=== PATIENT | female | born 1935 | race Caucasian/White ===

== ENCOUNTER → 2017-01-19 | Outpatient (REF) | payer MEDICARE ==
[~2017-01-19] MED LIST: /PANT40TA OR; ACYC400T OR; ALBUTEROL INH; CALCIUM WITH D PO; FERR325T OR; FLEXERIL; FLEXERIL PO; FURO40TA2 OR; GENTEAL GEL OD; GLUC500T3 OR; GLUMETZA PO; HYDR50TA7 OR; HYZAAR PO; INSULANT SC; LEVOCETIRIZINE PO; LIPI20TA OR; MULTIVIT PO; NASONEX; NEUR100C OR; POTA20TA OR; REFRESH EYE DROPS OU; SPIR25TA2 OR; SYMB80AE INH; VITA500T OR
== END ==
LOC: M LAB REF 16:24
PROVIDERS: ATTEND Surgery
DX: L57.0 Actinic keratosis (principal)

== ENCOUNTER 2018-01-31 14:38 | Inpatient (IN) | payer MEDICARE, BC, OTHER ==
[2018-01-31] MEDS: ONDANSETRON 4MG/2ML VIAL (J2405) IV (15:45)
[2018-01-31] MEDS: NS 500 ML IV (15:45)
[2018-01-31 17:12] LABS: HEMATOCRIT 27.1 % (36.0-47.0); HEMOGLOBIN 8.7 g/dl (12.0-15.5); MEAN CORPUSCULAR HEMOGLOBIN 25.9 pg (27.0-33.0); MEAN CORPUSCULAR HGB CONC 32.1 g/dl (32.0-36.5); MEAN CORPUSCULAR VOLUME 80.7 fl (80.0-96.0); PLATELET COUNT, AUTOMATED 213 10^3/uL (150-450); RED BLOOD COUNT 3.36 10^6/uL (4.00-5.40); RED CELL DISTRIBUTION WIDTH 15.9 % (11.5-14.5)
[2018-01-31 17:13] LABS: POSITIVE DIFF POS FLAG; WHITE BLOOD COUNT 15.5 10^3/uL (4.0-10.0)
[2018-01-31 17:14] LABS: ADD MANUAL DIFFER YES; DIFF SLIDE NUMBER 294; POSITIVE MORPH POS FLAG
[2018-01-31 17:16] LABS: KETONE, URINE AUTO RFX TRACE mg/dL (NEGATIVE); LEUKOCYTE ESTERASE UR AUTO RFX 3+ (NEGATIVE); NITRITE, URINE AUTO RFX POSITIVE (NEGATIVE); RBC, URINE AUTO RFX 3 /HPF (0-3); SPECIFIC GRAVITY UR AUTO RFX 1.013 (1.002-1.035); SQUAM EPITHELIAL CELL UR AURFX 0 /HPF (0-6); WBC, URINE AUTO RFX TNTC /HPF (0-3)
[2018-01-31 17:38] LABS: ALBUMIN 2.8 GM/DL (3.2-5.2); ALBUMIN/GLOBULIN RATIO 0.58 (1.00-1.93); ALKALINE PHOSPHATASE 96 U/L (45-117); ALT/SGPT 11 U/L (12-78); ANION GAP 8 MEQ/L (8-16); AST/SGOT 13 U/L (7-37); BILIRUBIN,DIRECT 0.3 MG/DL (0.0-0.2); BILIRUBIN,TOTAL 0.8 MG/DL (0.2-1.0); BLOOD UREA NITROGEN 31 MG/DL (7-18); CALCIUM LEVEL 7.8 MG/DL (8.8-10.2); CARBON DIOXIDE LEVEL 24 MEQ/L (21-32); CHLORIDE LEVEL 109 MEQ/L (98-107); CPK CREATINE PHOSPHOKINASE 69 U/L (26-192); CREATININE FOR GFR 1.25 MG/DL (0.55-1.30); GLOMERULAR FILTRATION RATE 43.7 (>32); GLUCOSE, FASTING 86 MG/DL (70-100); LIPASE 87 U/L (73-393); POTASSIUM SERUM 3.4 MEQ/L (3.5-5.1); SODIUM LEVEL 141 MEQ/L (136-145); TOTAL PROTEIN 7.6 GM/DL (6.4-8.2); TROPONIN I < 0.02 NG/ML (< 0.10)
[2018-01-31 17:38] LABS: LACTIC ACID SEPSIS PROTOCOL 0.9 MMOL/L (0.4-2.0)
[2018-01-31 17:43] LABS: CK-MB VALUE MASS 1.4 NG/ML (<3.6); MB/CK RELATIVE INDEX 2.02 (< OR =4)
[2018-01-31 17:52] LABS: ATYPICAL LYMPH 13 % (0-5); BLAST CELLS 1 % (0-0); EOSINOPHILS 1 % (0-5); LYMPHOCYTES 27 % (16-52); MONOCYTES 8 % (0-8); NEUTROPHILS 50 % (35-75); PLATELET ESTIMATE NORMAL (NORMAL)
[2018-01-31] MEDS: POTASSIUM CHLORIDE 10 MEQ SR TABLET PO (19:28)
[2018-01-31] MEDS: NS 1,000 ML IV (19:28)
[2018-01-31] MEDS: SYMBICORT 80/4.5MCG INHALER 6GM INH (20:00)
[2018-01-31] MEDS: VANCOMYCIN ORAL SOL 250MG/5ML ORAL SYRINGE PO (20:06)
[2018-01-31 20:52] LABS: REASON FOR REVIEW ATYPICAL LYMPHS; SLIDE REVIEW Report; SOURCE PERIPHERAL SMEAR
[2018-01-31] MEDS ORDERED: GLUCOSE 4 GM CHEW TABLET PO (21:00)
[2018-01-31] MEDS ORDERED: DEXTROSE 50% 50 ML SYRINGE IV (21:00)
[2018-01-31] MEDS ORDERED: GLUCAGON FOR INJ 1 MG VIAL (J1610) SC (21:00)
[2018-01-31] MEDS ORDERED: NS 1,000 ML IV (21:00)
[2018-01-31 21:09] LABS: INR 1.26
[2018-01-31 21:14] LABS: ERYTHROCYTE SEDIMENTATION RATE 77 mm/hr (0-30)
[2018-01-31] MEDS: HumaLOG INSULIN (NovoLOG) PER UNIT SC (21:47)
[2018-01-31] MEDS: SPIRONOLACTONE 25 MG TAB PO (21:50)
[2018-01-31] MEDS: ATORVASTATIN 20 MG TAB PO (21:50)
[2018-01-31] MEDS: METOPROLOL TART 25 MG TABLET PO (21:50)
[2018-01-31] MEDS: FUROSEMIDE 20 MG TAB PO (21:50)
[2018-01-31] MEDS: GABAPENTIN 300 MG CAP PO (21:51)
[2018-01-31] MEDS: LEVEMIR (INSULIN DETEMIR) 1 UNITS/0.01ML SC (21:51)
[2018-01-31] MEDS: HEPARIN SOD (PORCINE) 5000 UNITS/ML VIAL SC (21:52)
[2018-01-31] MEDS: FLUTICASONE PROP 0.05% NASAL SPRAY 16 GM (FLONASE) (22:50)
[2018-01-31] MEDS: ACETAMINOPHEN TAB 650MG DOSE (2X325MG) PO (22:50)
[2018-02-01] MEDS ORDERED: SLF 3 ML SYR IV (01:00)
[2018-02-01 01:25] LABS: BEDSIDE GLUCOSE 134 MG/DL (83-110)
[2018-02-01] MEDS: ACETAMINOPHEN TAB 650MG DOSE (2X325MG) PO ×3 (03:36→20:05)
[2018-02-01 05:08] LABS: HEMATOCRIT 24.6 % (36.0-47.0); HEMOGLOBIN 7.8 g/dl (12.0-15.5); MEAN CORPUSCULAR HGB CONC 31.7 g/dl (32.0-36.5); PLATELET COUNT, AUTOMATED 189 10^3/uL (150-450)
[2018-02-01 05:12] LABS: ADD MANUAL DIFFER YES; DIFF SLIDE NUMBER 83; POSITIVE DIFF POS FLAG; POSITIVE MORPH POS FLAG
[2018-02-01 05:18] LABS: PROTHROMBIN TIME 16.5 SECONDS (12.4-14.5)
[2018-02-01 05:24] LABS: AMMONIA 35 uMOL/L (<32)
[2018-02-01 05:35] LABS: ALBUMIN 2.6 GM/DL (3.2-5.2); ALBUMIN/GLOBULIN RATIO 0.59 (1.00-1.93); ALKALINE PHOSPHATASE 83 U/L (45-117); ALT/SGPT 10 U/L (12-78); ANION GAP 5 MEQ/L (8-16); AST/SGOT 12 U/L (7-37); BILIRUBIN,DIRECT 0.2 MG/DL (0.0-0.2); BILIRUBIN,TOTAL 0.7 MG/DL (0.2-1.0); BLOOD UREA NITROGEN 31 MG/DL (7-18); CALCIUM LEVEL 7.5 MG/DL (8.8-10.2); CARBON DIOXIDE LEVEL 26 MEQ/L (21-32); CHLORIDE LEVEL 112 MEQ/L (98-107); CREATININE FOR GFR 1.26 MG/DL (0.55-1.30); GLOMERULAR FILTRATION RATE 43.3 (>32); GLUCOSE, FASTING 47 MG/DL (70-100); MAGNESIUM LEVEL 1.2 MG/DL (1.8-2.4); POTASSIUM SERUM 3.6 MEQ/L (3.5-5.1); SODIUM LEVEL 143 MEQ/L (136-145)
[2018-02-01 05:38] LABS: ANISOCYTOSIS 1+; ATYPICAL LYMPH 1 % (0-5); LYMPHOCYTES 39 % (16-52); MONOCYTES 2 % (0-8); NEUTROPHILS 58 % (35-75); PLATELET ESTIMATE NORMAL (NORMAL)
[2018-02-01] MEDS: HEPARIN SOD (PORCINE) 5000 UNITS/ML VIAL SC ×3 (06:24→22:19)
[2018-02-01] MEDS: SLF 3 ML SYR IV ×3 (06:25→22:00)
[2018-02-01 07:12] LABS: BEDSIDE GLUCOSE 64 MG/DL (83-110)
[2018-02-01 07:12] LABS: BEDSIDE GLUCOSE 121 MG/DL (83-110)
[2018-02-01] MEDS: HumaLOG INSULIN (NovoLOG) PER UNIT SC ×4 (07:30→21:00)
[2018-02-01] MEDS: SYMBICORT 80/4.5MCG INHALER 6GM INH ×2 (08:10→21:35)
[2018-02-01] MEDS: FUROSEMIDE 20 MG TAB PO ×2 (08:30→22:16)
[2018-02-01] MEDS: VITAMIN D 1,000 INTERNATIONAL UNITS TABLET PO (08:31)
[2018-02-01] MEDS: PANTOPRAZOLE 40MG TAB (PROTONIX) PO (08:31)
[2018-02-01] MEDS: MULTIVITAMINS/MINERALS THERAP 1 TAB PO (08:31)
[2018-02-01] MEDS: VANCOMYCIN ORAL SOL 250MG/5ML ORAL SYRINGE PO ×3 (08:31→22:16)
[2018-02-01] MEDS: ASCORBIC ACID 500 MG TAB PO (08:31)
[2018-02-01] MEDS: METOPROLOL TART 25 MG TABLET PO ×2 (08:31→22:17)
[2018-02-01] MEDS: NORCO, ANEXSIA 5/325MG TABLET (HYDROcodone/ACETAMINOPHEN) PO (08:36)
[2018-02-01 09:18] LABS: HEMATOCRIT 26.1 % (36.0-47.0)
[2018-02-01 09:22] LABS: REASON FOR REVIEW WBC/LEUKEMIA/BLAST; SLIDE REVIEW Report; SOURCE PERIPHERAL SMEAR
[2018-02-01] MEDS: PIPERACILLIN/TAZOBACTAM SOD 3.375 GM in D5W MINI-BAG PLUS 50 ML IV ×3 (10:15→23:27)
[2018-02-01] MEDS: VANCOMYCIN HCL 1,000 MG, VIAL MATE ADAPTER 1 EACH in D5W 250 ML IV (11:25)
[2018-02-01] MEDS: VANCOMYCIN HCL 500 MG, VIAL MATE ADAPTER 1 EACH in D5W 250 ML IV (14:08)
[2018-02-01] MEDS: MAG SULF 1GM/100ML (MAG RUN) 1 GM in APPROPRIATE DILUENT 1 EA IV ×3 (17:41→19:52)
[2018-02-01] MEDS: FLUTICASONE PROP 0.05% NASAL SPRAY 16 GM (FLONASE) (21:00)
[2018-02-01 21:52] LABS: IMMEDIATE SPIN CROSSMATCH 1 1
[2018-02-01] MEDS: SPIRONOLACTONE 25 MG TAB PO (22:16)
[2018-02-01] MEDS: GABAPENTIN 300 MG CAP PO (22:17)
[2018-02-01] MEDS: ATORVASTATIN 20 MG TAB PO (22:17)
[2018-02-01] MEDS: LEVEMIR (INSULIN DETEMIR) 1 UNITS/0.01ML SC (22:18)
[2018-02-01] MEDS: ANALGESIC BALM CRM 120 GM TOP (22:31)
[2018-02-02 00:51] LABS: HEMATOCRIT 26.2 % (36.0-47.0); HEMOGLOBIN 8.3 g/dl (12.0-15.5); MEAN CORPUSCULAR HEMOGLOBIN 26.2 pg (27.0-33.0); MEAN CORPUSCULAR HGB CONC 31.7 g/dl (32.0-36.5); MEAN CORPUSCULAR VOLUME 82.6 fl (80.0-96.0); PLATELET COUNT, AUTOMATED 179 10^3/uL (150-450); RED BLOOD COUNT 3.17 10^6/uL (4.00-5.40); RED CELL DISTRIBUTION WIDTH 15.8 % (11.5-14.5); WHITE BLOOD COUNT 13.8 10^3/uL (4.0-10.0)
[2018-02-02 01:12] LABS: ANION GAP 7 MEQ/L (8-16); BLOOD UREA NITROGEN 28 MG/DL (7-18); CALCIUM LEVEL 7.7 MG/DL (8.8-10.2); CARBON DIOXIDE LEVEL 24 MEQ/L (21-32); CHLORIDE LEVEL 109 MEQ/L (98-107); GLOMERULAR FILTRATION RATE 35.4 (>32); GLUCOSE, FASTING 132 MG/DL (70-100); MAGNESIUM LEVEL 2.1 MG/DL (1.8-2.4); POTASSIUM SERUM 3.3 MEQ/L (3.5-5.1); SODIUM LEVEL 140 MEQ/L (136-145)
[2018-02-02] MEDS: POTASSIUM CHLORIDE 10 MEQ SR TABLET PO (01:31)
[2018-02-02] MEDS: ACETAMINOPHEN TAB 650MG DOSE (2X325MG) PO (01:36)
[2018-02-02 02:37] LABS: BEDSIDE GLUCOSE 147 MG/DL (83-110)
[2018-02-02] MEDS: PIPERACILLIN/TAZOBACTAM SOD 3.375 GM in D5W MINI-BAG PLUS 50 ML IV (04:47)
[2018-02-02 05:52] LABS: HEMATOCRIT 26.6 % (36.0-47.0); HEMOGLOBIN 8.3 g/dl (12.0-15.5); MEAN CORPUSCULAR HEMOGLOBIN 25.9 pg (27.0-33.0); MEAN CORPUSCULAR HGB CONC 31.2 g/dl (32.0-36.5); MEAN CORPUSCULAR VOLUME 83.1 fl (80.0-96.0); PLATELET COUNT, AUTOMATED 201 10^3/uL (150-450); RED CELL DISTRIBUTION WIDTH 15.9 % (11.5-14.5); WHITE BLOOD COUNT 12.6 10^3/uL (4.0-10.0)
[2018-02-02 05:57] LABS: POSITIVE DIFF POS FLAG; POSITIVE MORPH POS FLAG
[2018-02-02 05:58] LABS: ADD MANUAL DIFFER YES; DIFF SLIDE NUMBER 56
[2018-02-02] MEDS: SLF 3 ML SYR IV ×3 (06:00→21:11)
[2018-02-02] MEDS: HEPARIN SOD (PORCINE) 5000 UNITS/ML VIAL SC ×3 (06:06→21:11)
[2018-02-02 06:09] LABS: ANION GAP 7 MEQ/L (8-16); BLOOD UREA NITROGEN 31 MG/DL (7-18); CALCIUM LEVEL 7.5 MG/DL (8.8-10.2); CARBON DIOXIDE LEVEL 24 MEQ/L (21-32); CHLORIDE LEVEL 110 MEQ/L (98-107); CREATININE FOR GFR 1.53 MG/DL (0.55-1.30); GLOMERULAR FILTRATION RATE 34.6 (>32); GLUCOSE, FASTING 118 MG/DL (70-100); MAGNESIUM LEVEL 2.1 MG/DL (1.8-2.4); POTASSIUM SERUM 3.5 MEQ/L (3.5-5.1); SODIUM LEVEL 141 MEQ/L (136-145)
[2018-02-02] MEDS: SYMBICORT 80/4.5MCG INHALER 6GM INH ×2 (07:33→20:49)
[2018-02-02 07:34] LABS: ANISOCYTOSIS 1+; ATYPICAL LYMPH 1 % (0-5); EOSINOPHILS 1 % (0-5); LYMPHOCYTES 33 % (16-52); MONOCYTES 8 % (0-8); NEUTROPHILS 57 % (35-75); PLATELET ESTIMATE NORMAL (NORMAL)
[2018-02-02 07:35] LABS: OVALOCYTES 1+
[2018-02-02] MEDS: NS 1,000 ML IV (09:00)
[2018-02-02] MEDS: VITAMIN D 1,000 INTERNATIONAL UNITS TABLET PO (09:59)
[2018-02-02] MEDS: METOPROLOL TART 25 MG TABLET PO ×2 (09:59→21:09)
[2018-02-02] MEDS: FUROSEMIDE 20 MG TAB PO ×2 (09:59→21:00)
[2018-02-02] MEDS: MULTIVITAMINS/MINERALS THERAP 1 TAB PO (09:59)
[2018-02-02] MEDS ORDERED: VANCOMYCIN HCL 1,000 MG, VIAL MATE ADAPTER 1 EACH in D5W 250 ML IV (10:00)
[2018-02-02] MEDS: HumaLOG INSULIN (NovoLOG) PER UNIT SC ×4 (10:00→21:00)
[2018-02-02] MEDS: PANTOPRAZOLE 40MG TAB (PROTONIX) PO (10:00)
[2018-02-02] MEDS: ASCORBIC ACID 500 MG TAB PO (10:00)
[2018-02-02] MEDS: VANCOMYCIN ORAL SOL 250MG/5ML ORAL SYRINGE PO ×2 (10:01→17:55)
[2018-02-02] MEDS: LevoFLOXacin IV 500 MG in APPROPRIATE DILUENT 1 EA IV (10:01)
[2018-02-02] MEDS: LEVEMIR (INSULIN DETEMIR) 1 UNITS/0.01ML SC ×2 (10:01→21:10)
[2018-02-02] MEDS: ANALGESIC BALM CRM 120 GM TOP ×2 (10:04→21:11)
[2018-02-02 10:59] LABS: HEPATITIS B SURFACE ANTIGEN NEGATIVE (NEGATIVE)
[2018-02-02 11:24] LABS: HEPATITIS C VIRUS ABY INDEX 0.1 INDEX (<0.8)
[2018-02-02 11:25] LABS: HEPATITIS B CORE ANTIBODY IGM NEGATIVE (NEGATIVE)
[2018-02-02 11:27] LABS: HEPATITIS A ANTIBODY IGM NEGATIVE (NEGATIVE)
[2018-02-02] MEDS: CYCLOBENZAPRINE 10 MG TAB PO (19:47)
[2018-02-02] MEDS: FLUTICASONE PROP 0.05% NASAL SPRAY 16 GM (FLONASE) (21:00)
[2018-02-02] MEDS: SPIRONOLACTONE 25 MG TAB PO (21:07)
[2018-02-02] MEDS: ATORVASTATIN 20 MG TAB PO (21:09)
[2018-02-02] MEDS: GABAPENTIN 300 MG CAP PO (21:10)
[2018-02-02 21:34] LABS: BEDSIDE GLUCOSE 256 MG/DL (83-110)
[2018-02-02 21:34] LABS: BEDSIDE GLUCOSE 200 MG/DL (83-110)
[2018-02-02 21:34] LABS: BEDSIDE GLUCOSE 125 MG/DL (83-110)
[2018-02-02 21:34] LABS: BEDSIDE GLUCOSE 200 MG/DL (83-110)
[2018-02-02 21:34] LABS: BEDSIDE GLUCOSE 163 MG/DL (83-110)
[2018-02-03] MEDS: NORCO, ANEXSIA 5/325MG TABLET (HYDROcodone/ACETAMINOPHEN) PO ×2 (02:00→21:10)
[2018-02-03 06:03] LABS: HEMATOCRIT 26.7 % (36.0-47.0); HEMOGLOBIN 8.2 g/dl (12.0-15.5); MEAN CORPUSCULAR HEMOGLOBIN 25.6 pg (27.0-33.0); MEAN CORPUSCULAR HGB CONC 30.7 g/dl (32.0-36.5); MEAN CORPUSCULAR VOLUME 83.4 fl (80.0-96.0); PLATELET COUNT, AUTOMATED 192 10^3/uL (150-450); RED CELL DISTRIBUTION WIDTH 15.8 % (11.5-14.5)
[2018-02-03] MEDS: SLF 3 ML SYR IV ×3 (06:06→21:09)
[2018-02-03] MEDS: HEPARIN SOD (PORCINE) 5000 UNITS/ML VIAL SC ×3 (06:06→21:08)
[2018-02-03 06:13] LABS: ADD MANUAL DIFFER YES; DIFF SLIDE NUMBER 35; POSITIVE DIFF POS FLAG; POSITIVE MORPH POS FLAG; WHITE BLOOD COUNT 15.7 10^3/uL (4.0-10.0)
[2018-02-03 06:25] LABS: ANION GAP 7 MEQ/L (8-16); BLOOD UREA NITROGEN 25 MG/DL (7-18); CALCIUM LEVEL 7.9 MG/DL (8.8-10.2); CARBON DIOXIDE LEVEL 25 MEQ/L (21-32); CHLORIDE LEVEL 111 MEQ/L (98-107); CREATININE FOR GFR 1.33 MG/DL (0.55-1.30); GLOMERULAR FILTRATION RATE 40.7 (>32); GLUCOSE, FASTING 97 MG/DL (70-100); MAGNESIUM LEVEL 1.6 MG/DL (1.8-2.4); POTASSIUM SERUM 3.2 MEQ/L (3.5-5.1); SODIUM LEVEL 143 MEQ/L (136-145)
[2018-02-03 06:59] LABS: ATYPICAL LYMPH 2 % (0-5); LYMPHOCYTES 48 % (16-52); MONOCYTES 2 % (0-8); NEUTROPHILS 48 % (35-75)
[2018-02-03 07:00] LABS: ANISOCYTOSIS 1+; PLATELET ESTIMATE NORMAL (NORMAL)
[2018-02-03 07:01] LABS: HYPOCHROMASIA 1+
[2018-02-03] MEDS: SYMBICORT 80/4.5MCG INHALER 6GM INH ×2 (07:40→19:54)
[2018-02-03] MEDS: HumaLOG INSULIN (NovoLOG) PER UNIT SC ×4 (07:44→20:51)
[2018-02-03 08:44] LABS: BEDSIDE GLUCOSE 191 MG/DL (83-110)
[2018-02-03] MEDS: LEVEMIR (INSULIN DETEMIR) 1 UNITS/0.01ML SC ×2 (08:56→21:08)
[2018-02-03] MEDS: MAG SULF 1GM/100ML (MAG RUN) 1 GM in APPROPRIATE DILUENT 1 EA IV ×2 (08:56→10:15)
[2018-02-03] MEDS: POTASSIUM CHLORIDE 10 MEQ SR TABLET PO (08:56)
[2018-02-03] MEDS: MULTIVITAMINS/MINERALS THERAP 1 TAB PO (08:57)
[2018-02-03] MEDS: VITAMIN D 1,000 INTERNATIONAL UNITS TABLET PO (08:57)
[2018-02-03] MEDS: METOPROLOL TART 25 MG TABLET PO ×2 (08:57→21:07)
[2018-02-03] MEDS: ASCORBIC ACID 500 MG TAB PO (08:57)
[2018-02-03] MEDS: FUROSEMIDE 20 MG TAB PO ×2 (08:57→21:06)
[2018-02-03] MEDS: PANTOPRAZOLE 40MG TAB (PROTONIX) PO (08:57)
[2018-02-03] MEDS: LevoFLOXacin IV 500 MG in APPROPRIATE DILUENT 1 EA IV (11:26)
[2018-02-03 12:15] LABS: BEDSIDE GLUCOSE 217 MG/DL (83-110)
[2018-02-03] MEDS: LOPERAMIDE 2 MG CAP PO (14:42)
[2018-02-03 17:02] LABS: BEDSIDE GLUCOSE 225 MG/DL (83-110)
[2018-02-03 20:48] LABS: BEDSIDE GLUCOSE 232 MG/DL (83-110)
[2018-02-03] MEDS: FLUTICASONE PROP 0.05% NASAL SPRAY 16 GM (FLONASE) (21:00)
[2018-02-03] MEDS: CYCLOBENZAPRINE 10 MG TAB PO (21:06)
[2018-02-03] MEDS: GABAPENTIN 300 MG CAP PO (21:06)
[2018-02-03] MEDS: SPIRONOLACTONE 25 MG TAB PO (21:06)
[2018-02-03] MEDS: ATORVASTATIN 20 MG TAB PO (21:07)
[2018-02-03] MEDS: ANALGESIC BALM CRM 120 GM TOP (21:08)
[2018-02-04 05:59] LABS: HEMATOCRIT 28.7 % (36.0-47.0); HEMOGLOBIN 8.8 g/dl (12.0-15.5); MEAN CORPUSCULAR HGB CONC 30.7 g/dl (32.0-36.5); MEAN CORPUSCULAR VOLUME 84.7 fl (80.0-96.0); PLATELET COUNT, AUTOMATED 188 10^3/uL (150-450); RED BLOOD COUNT 3.39 10^6/uL (4.00-5.40)
[2018-02-04 06:00] LABS: ADD MANUAL DIFFER YES; DIFF SLIDE NUMBER 23; POSITIVE DIFF POS FLAG; POSITIVE MORPH POS FLAG; WHITE BLOOD COUNT 15.2 10^3/uL (4.0-10.0)
[2018-02-04] MEDS: SLF 3 ML SYR IV ×3 (06:00→22:55)
[2018-02-04] MEDS: HEPARIN SOD (PORCINE) 5000 UNITS/ML VIAL SC ×3 (06:18→22:54)
[2018-02-04 06:26] LABS: ANION GAP 6 MEQ/L (8-16); BLOOD UREA NITROGEN 23 MG/DL (7-18); CALCIUM LEVEL 8.3 MG/DL (8.8-10.2); CARBON DIOXIDE LEVEL 27 MEQ/L (21-32); CHLORIDE LEVEL 109 MEQ/L (98-107); GLOMERULAR FILTRATION RATE 45.8 (>32); GLUCOSE, FASTING 123 MG/DL (70-100); MAGNESIUM LEVEL 1.7 MG/DL (1.8-2.4); POTASSIUM SERUM 3.7 MEQ/L (3.5-5.1); SODIUM LEVEL 142 MEQ/L (136-145)
[2018-02-04 07:20] LABS: ATYPICAL LYMPH 3 % (0-5); BANDS 1 % (< 11); LYMPHOCYTES 45 % (16-52); MONOCYTES 2 % (0-8); MYELOCYTES 1 % (0-0); NEUTROPHILS 48 % (35-75)
[2018-02-04 07:21] LABS: PLATELET ESTIMATE NORMAL (NORMAL)
[2018-02-04 07:22] LABS: ANISOCYTOSIS 1+; MICROCYTOSIS 1+; POIKILOCYTOSIS 1+
[2018-02-04] MEDS: SYMBICORT 80/4.5MCG INHALER 6GM INH ×2 (07:51→21:33)
[2018-02-04] MEDS: LEVEMIR (INSULIN DETEMIR) 1 UNITS/0.01ML SC ×2 (09:46→20:29)
[2018-02-04] MEDS: HumaLOG INSULIN (NovoLOG) PER UNIT SC ×4 (09:46→20:30)
[2018-02-04] MEDS: MULTIVITAMINS/MINERALS THERAP 1 TAB PO (09:46)
[2018-02-04] MEDS: PANTOPRAZOLE 40MG TAB (PROTONIX) PO (09:46)
[2018-02-04] MEDS: FUROSEMIDE 20 MG TAB PO ×2 (09:47→20:29)
[2018-02-04] MEDS: ASCORBIC ACID 500 MG TAB PO (09:47)
[2018-02-04] MEDS: METOPROLOL TART 25 MG TABLET PO ×2 (09:47→20:28)
[2018-02-04] MEDS: VITAMIN D 1,000 INTERNATIONAL UNITS TABLET PO (09:47)
[2018-02-04] MEDS: LevoFLOXacin IV 500 MG in APPROPRIATE DILUENT 1 EA IV (09:48)
[2018-02-04 12:03] LABS: BEDSIDE GLUCOSE 267 MG/DL (83-110)
[2018-02-04] MEDS: GABAPENTIN 300 MG CAP PO ×2 (12:09→20:30)
[2018-02-04] MEDS: LOPERAMIDE 2 MG CAP PO (12:10)
[2018-02-04] MEDS: ALBUTEROL 90 MCG/ACT 8GM HFA INHALER INH (12:23)
[2018-02-04 16:51] LABS: BEDSIDE GLUCOSE 304 MG/DL (83-110)
[2018-02-04] MEDS: SPIRONOLACTONE 25 MG TAB PO (20:28)
[2018-02-04] MEDS: ATORVASTATIN 20 MG TAB PO (20:29)
[2018-02-04] MEDS: FLUTICASONE PROP 0.05% NASAL SPRAY 16 GM (FLONASE) (21:00)
[2018-02-04 21:18] LABS: BEDSIDE GLUCOSE 304 MG/DL (83-110)
[2018-02-04] MEDS: CYCLOBENZAPRINE 10 MG TAB PO (22:54)
[2018-02-05] MEDS: NORCO, ANEXSIA 5/325MG TABLET (HYDROcodone/ACETAMINOPHEN) PO ×2 (03:03→21:58)
[2018-02-05] MEDS: HEPARIN SOD (PORCINE) 5000 UNITS/ML VIAL SC ×3 (06:00→21:55)
[2018-02-05] MEDS: SLF 3 ML SYR IV ×3 (06:00→21:56)
[2018-02-05 06:10] LABS: HEMATOCRIT 26.2 % (36.0-47.0); HEMOGLOBIN 8.3 g/dl (12.0-15.5); MEAN CORPUSCULAR HEMOGLOBIN 25.9 pg (27.0-33.0); MEAN CORPUSCULAR HGB CONC 31.7 g/dl (32.0-36.5); MEAN CORPUSCULAR VOLUME 81.6 fl (80.0-96.0); PLATELET COUNT, AUTOMATED 213 10^3/uL (150-450); RED BLOOD COUNT 3.21 10^6/uL (4.00-5.40); RED CELL DISTRIBUTION WIDTH 15.9 % (11.5-14.5)
[2018-02-05 06:15] LABS: ANION GAP 5 MEQ/L (8-16); BLOOD UREA NITROGEN 21 MG/DL (7-18); CALCIUM LEVEL 7.9 MG/DL (8.8-10.2); CARBON DIOXIDE LEVEL 30 MEQ/L (21-32); CHLORIDE LEVEL 104 MEQ/L (98-107); CREATININE FOR GFR 1.17 MG/DL (0.55-1.30); GLOMERULAR FILTRATION RATE 47.1 (>32); GLUCOSE, FASTING 132 MG/DL (70-100); MAGNESIUM LEVEL 1.1 MG/DL (1.8-2.4); POTASSIUM SERUM 3.2 MEQ/L (3.5-5.1); SODIUM LEVEL 139 MEQ/L (136-145)
[2018-02-05 06:18] LABS: ADD MANUAL DIFFER YES; DIFF SLIDE NUMBER 26; POSITIVE DIFF POS FLAG; POSITIVE MORPH POS FLAG
[2018-02-05 06:55] LABS: EOSINOPHILS 1 % (0-5); LYMPHOCYTES 52 % (16-52); MONOCYTES 2 % (0-8); MYELOCYTES 1 % (0-0); NEUTROPHILS 44 % (35-75)
[2018-02-05 06:56] LABS: ANISOCYTOSIS 1+; HYPOCHROMASIA 1+; PLATELET ESTIMATE NORMAL (NORMAL); POIKILOCYTOSIS 1+
[2018-02-05 07:06] LABS: BEDSIDE GLUCOSE 137 MG/DL (83-110)
[2018-02-05] MEDS: SYMBICORT 80/4.5MCG INHALER 6GM INH ×2 (07:11→20:04)
[2018-02-05] MEDS: LevoFLOXacin IV 500 MG in APPROPRIATE DILUENT 1 EA IV (09:21)
[2018-02-05] MEDS: LOPERAMIDE 2 MG CAP PO (09:21)
[2018-02-05] MEDS: ASCORBIC ACID 500 MG TAB PO (09:22)
[2018-02-05] MEDS: GABAPENTIN 300 MG CAP PO ×2 (09:22→21:54)
[2018-02-05] MEDS: VITAMIN D 1,000 INTERNATIONAL UNITS TABLET PO (09:22)
[2018-02-05] MEDS: FUROSEMIDE 20 MG TAB PO ×2 (09:22→21:54)
[2018-02-05] MEDS: MULTIVITAMINS/MINERALS THERAP 1 TAB PO (09:22)
[2018-02-05] MEDS: LEVEMIR (INSULIN DETEMIR) 1 UNITS/0.01ML SC ×2 (09:23→21:55)
[2018-02-05] MEDS: METOPROLOL TART 25 MG TABLET PO ×2 (09:23→21:54)
[2018-02-05] MEDS: PANTOPRAZOLE 40MG TAB (PROTONIX) PO (09:24)
[2018-02-05] MEDS: HumaLOG INSULIN (NovoLOG) PER UNIT SC ×4 (09:24→21:56)
[2018-02-05 11:36] LABS: BEDSIDE GLUCOSE 257 MG/DL (83-110)
[2018-02-05] MEDS: POTASSIUM CHLORIDE 10% LIQ 20 MEQ/15 ML UDC PO (15:12)
[2018-02-05] MEDS: MAG SULF 1GM/100ML (MAG RUN) 1 GM in APPROPRIATE DILUENT 1 EA IV ×2 (15:13→16:40)
[2018-02-05 16:44] LABS: BEDSIDE GLUCOSE 326 MG/DL (83-110)
[2018-02-05 20:23] LABS: BEDSIDE GLUCOSE 322 MG/DL (83-110)
[2018-02-05] MEDS: FLUTICASONE PROP 0.05% NASAL SPRAY 16 GM (FLONASE) (21:00)
[2018-02-05] MEDS: ATORVASTATIN 20 MG TAB PO (21:54)
[2018-02-05] MEDS: SPIRONOLACTONE 25 MG TAB PO (21:54)
[2018-02-06] MEDS: HEPARIN SOD (PORCINE) 5000 UNITS/ML VIAL SC ×3 (05:39→21:21)
[2018-02-06] MEDS: SLF 3 ML SYR IV ×3 (05:39→21:21)
[2018-02-06 05:58] LABS: HEMOGLOBIN 8.1 g/dl (12.0-15.5); MEAN CORPUSCULAR HEMOGLOBIN 26.5 pg (27.0-33.0); MEAN CORPUSCULAR HGB CONC 32.4 g/dl (32.0-36.5); MEAN CORPUSCULAR VOLUME 81.7 fl (80.0-96.0); PLATELET COUNT, AUTOMATED 215 10^3/uL (150-450); RED BLOOD COUNT 3.06 10^6/uL (4.00-5.40); RED CELL DISTRIBUTION WIDTH 15.9 % (11.5-14.5)
[2018-02-06] MEDS ORDERED: LevoFLOXacin 500 MG TABLET PO (06:00)
[2018-02-06 06:04] LABS: ADD MANUAL DIFFER YES; DIFF SLIDE NUMBER 13; POSITIVE DIFF POS FLAG; POSITIVE MORPH POS FLAG; WHITE BLOOD COUNT 16.3 10^3/uL (4.0-10.0)
[2018-02-06 06:17] LABS: ANION GAP 5 MEQ/L (8-16); BLOOD UREA NITROGEN 21 MG/DL (7-18); CALCIUM LEVEL 7.6 MG/DL (8.8-10.2); CARBON DIOXIDE LEVEL 31 MEQ/L (21-32); CHLORIDE LEVEL 104 MEQ/L (98-107); CREATININE FOR GFR 1.15 MG/DL (0.55-1.30); GLOMERULAR FILTRATION RATE 48.1 (>32); GLUCOSE, FASTING 151 MG/DL (70-100); MAGNESIUM LEVEL 1.5 MG/DL (1.8-2.4); POTASSIUM SERUM 3.9 MEQ/L (3.5-5.1); SODIUM LEVEL 140 MEQ/L (136-145); URIC ACID 6.9 MG/DL (2.6-6.0)
[2018-02-06 07:02] LABS: ATYPICAL LYMPH 3 % (0-5); BANDS 1 % (< 11); EOSINOPHILS 3 % (0-5); LYMPHOCYTES 34 % (16-52); MONOCYTES 6 % (0-8); NEUTROPHILS 53 % (35-75); PLATELET ESTIMATE NORMAL (NORMAL)
[2018-02-06 07:03] LABS: ANISOCYTOSIS 1+
[2018-02-06] MEDS: LOPERAMIDE 2 MG CAP PO ×2 (08:51→20:48)
[2018-02-06] MEDS: MULTIVITAMINS/MINERALS THERAP 1 TAB PO (08:51)
[2018-02-06] MEDS: VITAMIN D 1,000 INTERNATIONAL UNITS TABLET PO (08:51)
[2018-02-06] MEDS: ASCORBIC ACID 500 MG TAB PO (08:51)
[2018-02-06] MEDS: METOPROLOL TART 25 MG TABLET PO ×2 (08:51→20:50)
[2018-02-06] MEDS: GABAPENTIN 300 MG CAP PO ×2 (08:51→20:47)
[2018-02-06] MEDS: PANTOPRAZOLE 40MG TAB (PROTONIX) PO (08:52)
[2018-02-06] MEDS: FUROSEMIDE 20 MG TAB PO ×2 (08:52→20:47)
[2018-02-06] MEDS: LEVEMIR (INSULIN DETEMIR) 1 UNITS/0.01ML SC ×2 (08:52→20:49)
[2018-02-06] MEDS: HumaLOG INSULIN (NovoLOG) PER UNIT SC ×4 (08:53→20:50)
[2018-02-06] MEDS: LevoFLOXacin IV 500 MG in APPROPRIATE DILUENT 1 EA IV (08:53)
[2018-02-06] MEDS: SYMBICORT 80/4.5MCG INHALER 6GM INH ×2 (09:11→20:24)
[2018-02-06] MEDS: MAG SULF 1GM/100ML (MAG RUN) 1 GM in APPROPRIATE DILUENT 1 EA IV ×2 (11:19→13:14)
[2018-02-06 11:35] LABS: BEDSIDE GLUCOSE 257 MG/DL (83-110)
[2018-02-06] MEDS: ACETAMINOPHEN TAB 650MG DOSE (2X325MG) PO (16:26)
[2018-02-06] MEDS: predniSONE 20 MG TAB PO (16:26)
[2018-02-06 20:15] LABS: BEDSIDE GLUCOSE 368 MG/DL (83-110)
[2018-02-06] MEDS: FLUTICASONE PROP 0.05% NASAL SPRAY 16 GM (FLONASE) (20:47)
[2018-02-06] MEDS: ATORVASTATIN 20 MG TAB PO (20:47)
[2018-02-06] MEDS: ALLOPURINOL 100 MG TAB PO (20:47)
[2018-02-06] MEDS: SPIRONOLACTONE 25 MG TAB PO (20:48)
[2018-02-07] MEDS: SLF 3 ML SYR IV ×3 (06:15→22:40)
[2018-02-07] MEDS: HEPARIN SOD (PORCINE) 5000 UNITS/ML VIAL SC ×3 (06:15→20:49)
[2018-02-07 06:48] LABS: BASO % 0.1 % (0.0-1.0); HEMATOCRIT 29.5 % (36.0-47.0); HEMOGLOBIN 9.3 g/dl (12.0-15.5); IMMATURE GRANULOCYTE % 1.1 % (0-3.0); LYMPH # 2.7 10^3/uL (1.5-4.5); LYMPH % 20.3 % (24.0-44.0); MEAN CORPUSCULAR HEMOGLOBIN 25.5 pg (27.0-33.0); MEAN CORPUSCULAR HGB CONC 31.5 g/dl (32.0-36.5); MONO # 0.5 10^3/uL (0.0-0.8); MONO % 3.9 % (0.0-5.0); NEUTROPHILS % 74.6 % (36.0-66.0); PLATELET COUNT, AUTOMATED 235 10^3/uL (150-450); RED BLOOD COUNT 3.64 10^6/uL (4.00-5.40); RED CELL DISTRIBUTION WIDTH 15.4 % (11.5-14.5); WHITE BLOOD COUNT 13.4 10^3/uL (4.0-10.0)
[2018-02-07 06:57] LABS: ANION GAP 8 MEQ/L (8-16); BLOOD UREA NITROGEN 25 MG/DL (7-18); CALCIUM LEVEL 8.6 MG/DL (8.8-10.2); CARBON DIOXIDE LEVEL 30 MEQ/L (21-32); CHLORIDE LEVEL 98 MEQ/L (98-107); GLOMERULAR FILTRATION RATE 41.7 (>32); GLUCOSE, FASTING 368 MG/DL (70-100); MAGNESIUM LEVEL 1.6 MG/DL (1.8-2.4); POTASSIUM SERUM 4.1 MEQ/L (3.5-5.1); SODIUM LEVEL 136 MEQ/L (136-145)
[2018-02-07 08:06] LABS: ALPHA 2-MACROGLOBULINS,QN 273 mg/dL (110-276); ALT (SGPT) P5P 7 IU/L (0-40); APOLIPOPROTEIN A-1 89 mg/dL (114-214); AST (SGOT) P5P 16 IU/L (0-40); BILIRUBIN, TOTAL 0.4 mg/dL (0.0-1.2); CHOLESTEROL TOTAL 85 mg/dL (100-199); FIBROSIS SCORE 0.45 (0.00-0.21); FIBROSIS STAGE F1-F2 (.); GGT 20 IU/L (0-60); GLUCOSE, SERUM 50 mg/dL (65-99); HAPTOGLOBIN 306 mg/dL (34-200); HEIGHT 60 in (.); STEATOSIS GRADE S1 - Mild Steatosis (.); TRIGLYCERIDES 76 mg/dL (0-149); WEIGHT 160 LBS (.)
[2018-02-07] MEDS: SYMBICORT 80/4.5MCG INHALER 6GM INH ×2 (08:25→20:18)
[2018-02-07 08:29] LABS: BEDSIDE GLUCOSE 241 MG/DL (83-110)
[2018-02-07] MEDS: MAG SULF 1GM/100ML (MAG RUN) 1 GM in APPROPRIATE DILUENT 1 EA IV (08:41)
[2018-02-07] MEDS: HumaLOG INSULIN (NovoLOG) PER UNIT SC ×5 (08:41→22:40)
[2018-02-07] MEDS: LEVEMIR (INSULIN DETEMIR) 1 UNITS/0.01ML SC ×2 (08:42→20:50)
[2018-02-07] MEDS: LevoFLOXacin IV 500 MG in APPROPRIATE DILUENT 1 EA IV (08:42)
[2018-02-07] MEDS: FUROSEMIDE 20 MG TAB PO ×2 (08:43→20:51)
[2018-02-07] MEDS: MULTIVITAMINS/MINERALS THERAP 1 TAB PO (08:43)
[2018-02-07] MEDS: METOPROLOL TART 25 MG TABLET PO ×2 (08:43→20:51)
[2018-02-07] MEDS: ASCORBIC ACID 500 MG TAB PO (08:43)
[2018-02-07] MEDS: GABAPENTIN 300 MG CAP PO ×2 (08:43→20:50)
[2018-02-07] MEDS: predniSONE 20 MG TAB PO (08:43)
[2018-02-07] MEDS: PANTOPRAZOLE 40MG TAB (PROTONIX) PO (08:43)
[2018-02-07] MEDS: VITAMIN D 1,000 INTERNATIONAL UNITS TABLET PO (08:43)
[2018-02-07 12:28] LABS: BEDSIDE GLUCOSE 365 MG/DL (83-110)
[2018-02-07 16:52] LABS: BEDSIDE GLUCOSE 440 MG/DL (83-110)
[2018-02-07] MEDS: ATORVASTATIN 20 MG TAB PO (20:50)
[2018-02-07] MEDS: SPIRONOLACTONE 25 MG TAB PO (20:50)
[2018-02-07] MEDS: ALLOPURINOL 100 MG TAB PO (20:50)
[2018-02-07] MEDS: FLUTICASONE PROP 0.05% NASAL SPRAY 16 GM (FLONASE) (20:52)
[2018-02-07 22:32] LABS: BEDSIDE GLUCOSE 476 MG/DL (83-110)
[2018-02-08] MEDS: SLF 3 ML SYR IV ×3 (05:31→21:54)
[2018-02-08] MEDS: HEPARIN SOD (PORCINE) 5000 UNITS/ML VIAL SC ×3 (05:31→21:51)
[2018-02-08 05:38] LABS: BEDSIDE GLUCOSE 275 MG/DL (83-110)
[2018-02-08 06:33] LABS: BEDSIDE GLUCOSE 570 MG/DL (83-110)
[2018-02-08 06:58] LABS: C REACTIVE PROTEIN QUANTITATIV 6.73 MG/DL (0.00-0.30)
[2018-02-08 08:09] LABS: HEMATOCRIT 26.3 % (36.0-47.0); HEMOGLOBIN 8.3 g/dl (12.0-15.5); MEAN CORPUSCULAR HEMOGLOBIN 25.8 pg (27.0-33.0); MEAN CORPUSCULAR HGB CONC 31.6 g/dl (32.0-36.5); MEAN CORPUSCULAR VOLUME 81.7 fl (80.0-96.0); PLATELET COUNT, AUTOMATED 248 10^3/uL (150-450); RED BLOOD COUNT 3.22 10^6/uL (4.00-5.40); RED CELL DISTRIBUTION WIDTH 15.6 % (11.5-14.5); WHITE BLOOD COUNT 16.6 10^3/uL (4.0-10.0)
[2018-02-08 08:14] LABS: ADD MANUAL DIFFER YES; ALBUMIN 2.2 GM/DL (3.2-5.2); ALBUMIN/GLOBULIN RATIO 0.42 (1.00-1.93); AST/SGOT 23 U/L (7-37); BILIRUBIN,TOTAL 0.3 MG/DL (0.2-1.0); BLOOD UREA NITROGEN 29 MG/DL (7-18); CALCIUM LEVEL 8.5 MG/DL (8.8-10.2); CHLORIDE LEVEL 100 MEQ/L (98-107); CREATININE FOR GFR 1.18 MG/DL (0.55-1.30); DIFF SLIDE NUMBER 133; GLOMERULAR FILTRATION RATE 46.7 (>32); GLUCOSE, FASTING 264 MG/DL (70-100); MAGNESIUM LEVEL 1.6 MG/DL (1.8-2.4); POSITIVE DIFF POS FLAG; POSITIVE MORPH POS FLAG; POTASSIUM SERUM 3.8 MEQ/L (3.5-5.1); SODIUM LEVEL 137 MEQ/L (136-145); TOTAL PROTEIN 7.5 GM/DL (6.4-8.2)
[2018-02-08] MEDS: SYMBICORT 80/4.5MCG INHALER 6GM INH ×2 (08:17→22:58)
[2018-02-08 08:41] LABS: ATYPICAL LYMPH 5 % (0-5); LYMPHOCYTES 22 % (16-52); MONOCYTES 7 % (0-8); NEUTROPHILS 66 % (35-75); PLATELET ESTIMATE NORMAL (NORMAL)
[2018-02-08 08:42] LABS: ANISOCYTOSIS 1+
[2018-02-08 08:56] LABS: ALKALINE PHOSPHATASE 147 U/L (45-117); ALT/SGPT 28 U/L (12-78); ANION GAP 8 MEQ/L (8-16); CARBON DIOXIDE LEVEL 29 MEQ/L (21-32)
[2018-02-08] MEDS: predniSONE 20 MG TAB PO (09:05)
[2018-02-08] MEDS: GABAPENTIN 300 MG CAP PO ×2 (09:06→21:52)
[2018-02-08] MEDS: FUROSEMIDE 20 MG TAB PO ×2 (09:06→21:52)
[2018-02-08] MEDS: VITAMIN D 1,000 INTERNATIONAL UNITS TABLET PO (09:06)
[2018-02-08] MEDS: PANTOPRAZOLE 40MG TAB (PROTONIX) PO (09:06)
[2018-02-08] MEDS: ASCORBIC ACID 500 MG TAB PO (09:07)
[2018-02-08] MEDS: MULTIVITAMINS/MINERALS THERAP 1 TAB PO (09:07)
[2018-02-08] MEDS: METOPROLOL TART 25 MG TABLET PO ×2 (09:07→21:53)
[2018-02-08] MEDS: HumaLOG INSULIN (NovoLOG) PER UNIT SC ×6 (09:08→21:51)
[2018-02-08] MEDS: LEVEMIR (INSULIN DETEMIR) 1 UNITS/0.01ML SC ×2 (09:08→21:52)
[2018-02-08] MEDS: LevoFLOXacin IV 500 MG in APPROPRIATE DILUENT 1 EA IV (09:48)
[2018-02-08 11:33] LABS: BEDSIDE GLUCOSE 323 MG/DL (83-110)
[2018-02-08] MEDS: MAG SULF 1GM/100ML (MAG RUN) 1 GM in APPROPRIATE DILUENT 1 EA IV ×2 (15:05→16:01)
[2018-02-08 16:56] LABS: BEDSIDE GLUCOSE 505 MG/DL (83-110)
[2018-02-08 18:03] LABS: BEDSIDE GLUCOSE CONFIRMATION 510 MG/DL (LESS THAN 200)
[2018-02-08 19:13] LABS: BEDSIDE GLUCOSE 517 MG/DL (83-110)
[2018-02-08 20:21] LABS: BEDSIDE GLUCOSE CONFIRMATION 517 MG/DL (LESS THAN 200)
[2018-02-08 21:42] LABS: BEDSIDE GLUCOSE 442 MG/DL (83-110)
[2018-02-08] MEDS: FLUTICASONE PROP 0.05% NASAL SPRAY 16 GM (FLONASE) (21:51)
[2018-02-08] MEDS: ATORVASTATIN 20 MG TAB PO (21:52)
[2018-02-08] MEDS: SPIRONOLACTONE 25 MG TAB PO (21:52)
[2018-02-08] MEDS: ALLOPURINOL 100 MG TAB PO (21:52)
[2018-02-08] MEDS: LOSARTAN 50 MG TAB PO (21:53)
[2018-02-08 23:35] LABS: BEDSIDE GLUCOSE 364 MG/DL (83-110)
[2018-02-09] MEDS: HEPARIN SOD (PORCINE) 5000 UNITS/ML VIAL SC ×2 (05:43→14:00)
[2018-02-09] MEDS: SLF 3 ML SYR IV ×2 (05:43→14:00)
[2018-02-09 06:20] LABS: HEMATOCRIT 28.6 % (36.0-47.0); MEAN CORPUSCULAR HEMOGLOBIN 25.7 pg (27.0-33.0); MEAN CORPUSCULAR HGB CONC 31.5 g/dl (32.0-36.5); MEAN CORPUSCULAR VOLUME 81.7 fl (80.0-96.0); PLATELET COUNT, AUTOMATED 251 10^3/uL (150-450); RED CELL DISTRIBUTION WIDTH 15.6 % (11.5-14.5)
[2018-02-09 06:39] LABS: ALBUMIN 2.4 GM/DL (3.2-5.2); ALBUMIN/GLOBULIN RATIO 0.43 (1.00-1.93); ALKALINE PHOSPHATASE 161 U/L (45-117); ALT/SGPT 37 U/L (12-78); ANION GAP 7 MEQ/L (8-16); AST/SGOT 26 U/L (7-37); BILIRUBIN,TOTAL 0.3 MG/DL (0.2-1.0); BLOOD UREA NITROGEN 31 MG/DL (7-18); C REACTIVE PROTEIN QUANTITATIV 3.83 MG/DL (0.00-0.30); CALCIUM LEVEL 8.6 MG/DL (8.8-10.2); CARBON DIOXIDE LEVEL 32 MEQ/L (21-32); CHLORIDE LEVEL 99 MEQ/L (98-107); GLOMERULAR FILTRATION RATE 50.6 (>32); GLUCOSE, FASTING 216 MG/DL (70-100); MAGNESIUM LEVEL 1.8 MG/DL (1.8-2.4); POTASSIUM SERUM 3.6 MEQ/L (3.5-5.1); SODIUM LEVEL 138 MEQ/L (136-145)
[2018-02-09 06:43] LABS: ADD MANUAL DIFFER YES; DIFF SLIDE NUMBER 66; POSITIVE DIFF POS FLAG; POSITIVE MORPH POS FLAG; WHITE BLOOD COUNT 17.3 10^3/uL (4.0-10.0)
[2018-02-09 07:21] LABS: ATYPICAL LYMPH 3 % (0-5); LYMPHOCYTES 26 % (16-52); MONOCYTES 6 % (0-8); NEUTROPHILS 65 % (35-75)
[2018-02-09 07:22] LABS: ANISOCYTOSIS 1+; PLATELET ESTIMATE NORMAL (NORMAL); POIKILOCYTOSIS 1+
[2018-02-09 07:23] LABS: HYPOCHROMASIA 1+
[2018-02-09] MEDS: LevoFLOXacin IV 500 MG in APPROPRIATE DILUENT 1 EA IV (08:49)
[2018-02-09] MEDS: HumaLOG INSULIN (NovoLOG) PER UNIT SC ×3 (08:49→17:21)
[2018-02-09] MEDS: MULTIVITAMINS/MINERALS THERAP 1 TAB PO (08:51)
[2018-02-09] MEDS: GABAPENTIN 300 MG CAP PO (08:51)
[2018-02-09] MEDS: predniSONE 10 MG TAB PO (08:51)
[2018-02-09] MEDS: FUROSEMIDE 20 MG TAB PO (08:51)
[2018-02-09] MEDS: LEVEMIR (INSULIN DETEMIR) 1 UNITS/0.01ML SC (08:51)
[2018-02-09] MEDS: ASCORBIC ACID 500 MG TAB PO (08:51)
[2018-02-09] MEDS: VITAMIN D 1,000 INTERNATIONAL UNITS TABLET PO (08:52)
[2018-02-09] MEDS: METOPROLOL TART 25 MG TABLET PO (08:52)
[2018-02-09] MEDS: PANTOPRAZOLE 40MG TAB (PROTONIX) PO (08:52)
[2018-02-09] MEDS: SYMBICORT 80/4.5MCG INHALER 6GM INH (09:04)
[2018-02-09 11:41] LABS: BEDSIDE GLUCOSE 244 MG/DL (83-110)
[2018-02-09 16:29] LABS: BEDSIDE GLUCOSE 416 MG/DL (83-110)
[2018-02-12] MEDS ORDERED: predniSONE 20 MG TAB PO (09:00)
[2018-02-15] MEDS ORDERED: predniSONE 10 MG TAB PO (09:00)
== END 2018-02-09 21:16 | disposition home or self-care (01) | DRG 372 ==
LOC: M PCU 02-01 00:10 → M MSPAV 02-02 22:25 → M ED 14:38 → M ED INP 20:38
PROVIDERS: Orthopaedic Surgery
PROC: 30233N1 Transfusion of Nonautologous Red Blood Cells into Peripheral Vein, Percutaneous Approach (ICD-10-PCS; principal; 2018-02-01)
DX: A02.0 Salmonella enteritis (principal); N17.9 Acute kidney failure, unspecified; N39.0 Urinary tract infection, site not specified; I16.0 Hypertensive urgency; E83.42 Hypomagnesemia; E87.6 Hypokalemia; N18.3 Chronic kidney disease, stage 3 (moderate); M10.9 Gout, unspecified; B96.20 Unspecified Escherichia coli [E. coli] as the cause of diseases classified elsewhere; K21.9 Gastro-esophageal reflux disease without esophagitis; J44.9 Chronic obstructive pulmonary disease, unspecified; E11.40 Type 2 diabetes mellitus with diabetic neuropathy, unspecified; E78.00 Pure hypercholesterolemia, unspecified; I12.9 Hypertensive chronic kidney disease with stage 1 through stage 4 chronic kidney disease, or unspecified chronic kidney disease; Z99.81 Dependence on supplemental oxygen; Z90.710 Acquired absence of both cervix and uterus; Z96.652 Presence of left artificial knee joint; Z88.2 Allergy status to sulfonamides; Z88.8 Allergy status to other drugs, medicaments and biological substances

== ENCOUNTER 2018-02-21 17:29 | Inpatient (IN) | payer MEDICARE, BC, OTHER ==
[2018-02-21] MEDS: ACETAMINOPHEN TAB 650MG DOSE (2X325MG) PO (18:07)
[2018-02-21] MEDS: NS 1,000 ML IV ×2 (18:56→22:10)
[2018-02-21 18:57] LABS: HEMATOCRIT 29.2 % (36.0-47.0); HEMOGLOBIN 9.2 g/dl (12.0-15.5); MEAN CORPUSCULAR HEMOGLOBIN 26.1 pg (27.0-33.0); MEAN CORPUSCULAR HGB CONC 31.5 g/dl (32.0-36.5); PLATELET COUNT, AUTOMATED 206 10^3/uL (150-450); RED BLOOD COUNT 3.52 10^6/uL (4.00-5.40); RED CELL DISTRIBUTION WIDTH 16.4 % (11.5-14.5)
[2018-02-21 19:00] LABS: WHITE BLOOD COUNT 19.7 10^3/uL (4.0-10.0)
[2018-02-21 19:01] LABS: ADD MANUAL DIFFER YES; DIFF SLIDE NUMBER 326; POSITIVE DIFF POS FLAG; POSITIVE MORPH POS FLAG
[2018-02-21 19:01] LABS: LACTIC ACID SEPSIS PROTOCOL 1.1 MMOL/L (0.4-2.0)
[2018-02-21 19:06] LABS: ALBUMIN 2.6 GM/DL (3.2-5.2); ALBUMIN/GLOBULIN RATIO 0.52 (1.00-1.93); ALKALINE PHOSPHATASE 118 U/L (45-117); ALT/SGPT 17 U/L (12-78); ANION GAP 7 MEQ/L (8-16); AST/SGOT 15 U/L (7-37); BILIRUBIN,DIRECT 0.3 MG/DL (0.0-0.2); BILIRUBIN,TOTAL 0.9 MG/DL (0.2-1.0); BLOOD UREA NITROGEN 33 MG/DL (7-18); CALCIUM LEVEL 8.1 MG/DL (8.8-10.2); CARBON DIOXIDE LEVEL 27 MEQ/L (21-32); CHLORIDE LEVEL 102 MEQ/L (98-107); CREATININE FOR GFR 1.61 MG/DL (0.55-1.30); GLOMERULAR FILTRATION RATE 32.6 (>32); GLUCOSE, FASTING 151 MG/DL (70-100); NT-PRO BNP 707 PG/ML (<450); SODIUM LEVEL 136 MEQ/L (136-145); TOTAL PROTEIN 7.6 GM/DL (6.4-8.2)
[2018-02-21 19:22] LABS: ATYPICAL LYMPH 12 % (0-5); LYMPHOCYTES 24 % (16-52); NEUTROPHILS 64 % (35-75)
[2018-02-21 19:23] LABS: ANISOCYTOSIS 1+; PLATELET ESTIMATE NORMAL (NORMAL)
[2018-02-21] MEDS: FUROSEMIDE 40 MG/4 ML VIAL (J1940) IV (20:47)
[2018-02-21 20:55] LABS: APPEARANCE, URINE HAZY (CLEAR); BACTERIA, URINE AUTO NEGATIVE (NEGATIVE); BILIRUBIN, URINE AUTO NEGATIVE (NEGATIVE); BLOOD, URINE BLOOD NEGATIVE (NEGATIVE); COLOR, URINE YELLOW (YELLOW); GLUCOSE, URINE (UA) AUTO NEGATIVE (NEGATIVE); KETONE, URINE AUTO NEGATIVE (NEGATIVE); LEUKOCYTE ESTERASE, URINE AUTO 2+ (NEGATIVE); MUCUS, URINE SMALL (NEGATIVE); NITRITE, URINE AUTO NEGATIVE (NEGATIVE); PROTEIN, URINE AUTO NEGATIVE (NEGATIVE); RBC, URINE AUTO 3 /HPF (0-3); SPECIFIC GRAVITY URINE AUTO 1.014 (1.002-1.035); SQUAMOUS EPITHELIAL CELL UR AU 1 /HPF (0-6); UROBILINOGEN, URINE AUTO 0.2 mg/dL (0.0-2.0); WBC, URINE AUTO 30 /HPF (0-3)
[2018-02-21] MEDS: SYMBICORT 80/4.5MCG INHALER 6GM INH (21:00)
[2018-02-21] MEDS: FLUTICASONE PROP 0.05% NASAL SPRAY 16 GM (FLONASE) (21:00)
[2018-02-21] MEDS: CHOLESTYRAMINE 4 GM PWD PKT PO (21:00)
[2018-02-21] MEDS: HumaLOG INSULIN (NovoLOG) PER UNIT SC (21:00)
[2018-02-21] MEDS ORDERED: DEXTROSE 50% 50 ML SYRINGE IV (22:15)
[2018-02-21] MEDS ORDERED: GLUCAGON FOR INJ 1 MG VIAL (J1610) SC (22:15)
[2018-02-21] MEDS ORDERED: GLUCOSE 4 GM CHEW TABLET PO (22:15)
[2018-02-21 22:41] LABS: BEDSIDE GLUCOSE 134 MG/DL (83-110)
[2018-02-21] MEDS: LEVEMIR (INSULIN DETEMIR) 1 UNITS/0.01ML SC (23:15)
[2018-02-21] MEDS: **hydrALAZINE** 50 MG TAB PO (23:16)
[2018-02-21] MEDS: ATORVASTATIN 20 MG TAB PO (23:16)
[2018-02-21] MEDS: GABAPENTIN 300 MG CAP PO (23:16)
[2018-02-21] MEDS: ALLOPURINOL 100 MG TAB PO (23:16)
[2018-02-22] MEDS: cefTRIAXone SOD 1 GM in D5W MINI-BAG PLUS 50 ML IV (02:00)
[2018-02-22 06:15] LABS: HEMATOCRIT 24.5 % (36.0-47.0); HEMOGLOBIN 7.6 g/dl (12.0-15.5); MEAN CORPUSCULAR HEMOGLOBIN 25.6 pg (27.0-33.0); MEAN CORPUSCULAR VOLUME 82.5 fl (80.0-96.0); PLATELET COUNT, AUTOMATED 164 10^3/uL (150-450); RED BLOOD COUNT 2.97 10^6/uL (4.00-5.40); RED CELL DISTRIBUTION WIDTH 16.2 % (11.5-14.5)
[2018-02-22 06:20] LABS: ADD MANUAL DIFFER YES; DIFF SLIDE NUMBER 81; POSITIVE DIFF POS FLAG; POSITIVE MORPH POS FLAG; WHITE BLOOD COUNT 13.5 10^3/uL (4.0-10.0)
[2018-02-22 06:36] LABS: ALBUMIN 2.2 GM/DL (3.2-5.2); ALBUMIN/GLOBULIN RATIO 0.55 (1.00-1.93); ALKALINE PHOSPHATASE 97 U/L (45-117); ALT/SGPT 11 U/L (12-78); ANION GAP 6 MEQ/L (8-16); AST/SGOT 10 U/L (7-37); BILIRUBIN,TOTAL 0.5 MG/DL (0.2-1.0); BLOOD UREA NITROGEN 31 MG/DL (7-18); CALCIUM LEVEL 7.4 MG/DL (8.8-10.2); CARBON DIOXIDE LEVEL 27 MEQ/L (21-32); CHLORIDE LEVEL 106 MEQ/L (98-107); CREATININE FOR GFR 1.43 MG/DL (0.55-1.30); GLOMERULAR FILTRATION RATE 37.4 (>32); GLUCOSE, FASTING 180 MG/DL (70-100); POTASSIUM SERUM 3.3 MEQ/L (3.5-5.1); SODIUM LEVEL 139 MEQ/L (136-145); TOTAL PROTEIN 6.2 GM/DL (6.4-8.2)
[2018-02-22] MEDS ORDERED: ALBUTEROL SULFATE 2.5 MG/0.5 ML INH NEB SOLN NEB (07:00)
[2018-02-22 07:03] LABS: ATYPICAL LYMPH 12 % (0-5); BASOPHILS 2 % (0-4); EOSINOPHILS 1 % (0-5); LYMPHOCYTES 52 % (16-52); NEUTROPHILS 33 % (35-75)
[2018-02-22 07:04] LABS: OVALOCYTES 1+; PLATELET ESTIMATE NORMAL (NORMAL)
[2018-02-22] MEDS: SYMBICORT 80/4.5MCG INHALER 6GM INH ×2 (07:55→19:58)
[2018-02-22] MEDS: IPRATROPIUM 0.5MG/ALBUTEROL 2.5MG INH SOL UD 3ML (DUONEB)(J7620) NEB ×3 (07:55→22:49)
[2018-02-22] MEDS: ENOXAPARIN 30 MG/0.3 ML SYR (J1650) SC (08:13)
[2018-02-22] MEDS: metroNIDAZOLE 500 MG in APPROPRIATE DILUENT 1 EA IV ×2 (08:14)
[2018-02-22] MEDS: HumaLOG INSULIN (NovoLOG) PER UNIT SC ×4 (08:14→21:00)
[2018-02-22] MEDS: POTASSIUM CHLORIDE 10 MEQ SR TABLET PO (08:14)
[2018-02-22] MEDS: PANTOPRAZOLE 40MG TAB (PROTONIX) PO (08:15)
[2018-02-22] MEDS: **hydrALAZINE** 50 MG TAB PO (08:21)
[2018-02-22] MEDS: CHOLESTYRAMINE 4 GM PWD PKT PO ×2 (08:22→21:00)
[2018-02-22] MEDS: NS 1,000 ML IV (08:24)
[2018-02-22] MEDS ORDERED: FUROSEMIDE 20 MG TAB PO (09:00)
[2018-02-22] MEDS ORDERED: cefTRIAXone SOD 1 GM VIAL (J0696) IM (09:00)
[2018-02-22 12:03] LABS: BEDSIDE GLUCOSE 169 MG/DL (83-110)
[2018-02-22 16:50] LABS: BEDSIDE GLUCOSE 248 MG/DL (83-110)
[2018-02-22] MEDS: FERROUS SULFATE 325MG TAB PO (17:08)
[2018-02-22 20:11] LABS: BEDSIDE GLUCOSE 243 MG/DL (83-110)
[2018-02-22] MEDS: FLUTICASONE PROP 0.05% NASAL SPRAY 16 GM (FLONASE) (21:00)
[2018-02-22] MEDS: ALLOPURINOL 100 MG TAB PO (21:00)
[2018-02-22] MEDS: ATORVASTATIN 20 MG TAB PO (21:00)
[2018-02-22] MEDS: LEVEMIR (INSULIN DETEMIR) 1 UNITS/0.01ML SC (21:00)
[2018-02-22] MEDS: GABAPENTIN 300 MG CAP PO (21:00)
[2018-02-23] MEDS: CYCLOBENZAPRINE 10 MG TAB PO (01:07)
[2018-02-23] MEDS: cefTRIAXone SOD 1 GM in D5W MINI-BAG PLUS 50 ML IV (02:00)
[2018-02-23] MEDS: ACETAMINOPHEN TAB 650MG DOSE (2X325MG) PO (02:26)
[2018-02-23] MEDS: SYMBICORT 80/4.5MCG INHALER 6GM INH ×2 (07:19→21:31)
[2018-02-23] MEDS: IPRATROPIUM 0.5MG/ALBUTEROL 2.5MG INH SOL UD 3ML (DUONEB)(J7620) NEB ×2 (07:19→15:30)
[2018-02-23 07:21] LABS: HEMATOCRIT 23.8 % (36.0-47.0); HEMOGLOBIN 7.4 g/dl (12.0-15.5); MEAN CORPUSCULAR HEMOGLOBIN 25.9 pg (27.0-33.0); MEAN CORPUSCULAR HGB CONC 31.1 g/dl (32.0-36.5); MEAN CORPUSCULAR VOLUME 83.2 fl (80.0-96.0); PLATELET COUNT, AUTOMATED 156 10^3/uL (150-450); RED BLOOD COUNT 2.86 10^6/uL (4.00-5.40); RED CELL DISTRIBUTION WIDTH 16.1 % (11.5-14.5)
[2018-02-23 07:22] LABS: POSITIVE DIFF POS FLAG; POSITIVE MORPH POS FLAG
[2018-02-23 07:23] LABS: ADD MANUAL DIFFER YES; DIFF SLIDE NUMBER 50
[2018-02-23 07:48] LABS: ANION GAP 5 MEQ/L (8-16); BLOOD UREA NITROGEN 27 MG/DL (7-18); CALCIUM LEVEL 7.4 MG/DL (8.8-10.2); CARBON DIOXIDE LEVEL 25 MEQ/L (21-32); CHLORIDE LEVEL 109 MEQ/L (98-107); CREATININE FOR GFR 1.32 MG/DL (0.55-1.30); GLUCOSE, FASTING 225 MG/DL (70-100); POTASSIUM SERUM 3.9 MEQ/L (3.5-5.1); SODIUM LEVEL 139 MEQ/L (136-145)
[2018-02-23 08:08] LABS: BASOPHILS 1 % (0-4); EOSINOPHILS 1 % (0-5); LYMPHOCYTES 53 % (16-52); MONOCYTES 3 % (0-8); NEUTROPHILS 42 % (35-75); PLATELET ESTIMATE NORMAL (NORMAL)
[2018-02-23] MEDS: ENOXAPARIN 30 MG/0.3 ML SYR (J1650) SC (09:00)
[2018-02-23] MEDS: CHOLESTYRAMINE 4 GM PWD PKT PO ×2 (09:00→21:45)
[2018-02-23] MEDS: FERROUS SULFATE 325MG TAB PO (09:47)
[2018-02-23] MEDS: PANTOPRAZOLE 40MG TAB (PROTONIX) PO (09:47)
[2018-02-23] MEDS: HumaLOG INSULIN (NovoLOG) PER UNIT SC ×4 (09:47→21:45)
[2018-02-23] MEDS: FUROSEMIDE 40 MG/4 ML VIAL (J1940) IV (10:45)
[2018-02-23 11:40] LABS: BEDSIDE GLUCOSE 251 MG/DL (83-110)
[2018-02-23 17:20] LABS: BEDSIDE GLUCOSE 332 MG/DL (83-110)
[2018-02-23 20:23] LABS: BEDSIDE GLUCOSE 311 MG/DL (83-110)
[2018-02-23 21:08] LABS: IMMEDIATE SPIN CROSSMATCH 1 2
[2018-02-23] MEDS: FLUTICASONE PROP 0.05% NASAL SPRAY 16 GM (FLONASE) (21:45)
[2018-02-23] MEDS: LEVEMIR (INSULIN DETEMIR) 1 UNITS/0.01ML SC (21:45)
[2018-02-23] MEDS: GABAPENTIN 300 MG CAP PO (21:45)
[2018-02-23] MEDS: ATORVASTATIN 20 MG TAB PO (21:45)
[2018-02-23] MEDS: ALLOPURINOL 100 MG TAB PO (21:45)
[2018-02-24] MEDS: IPRATROPIUM 0.5MG/ALBUTEROL 2.5MG INH SOL UD 3ML (DUONEB)(J7620) NEB ×3 (00:48→15:14)
[2018-02-24] MEDS: CYCLOBENZAPRINE 10 MG TAB PO (01:14)
[2018-02-24 06:28] LABS: HEMATOCRIT 29.4 % (36.0-47.0); HEMOGLOBIN 9.4 g/dl (12.0-15.5); MEAN CORPUSCULAR HEMOGLOBIN 26.6 pg (27.0-33.0); MEAN CORPUSCULAR VOLUME 83.1 fl (80.0-96.0); PLATELET COUNT, AUTOMATED 149 10^3/uL (150-450); RED BLOOD COUNT 3.54 10^6/uL (4.00-5.40); RED CELL DISTRIBUTION WIDTH 15.5 % (11.5-14.5)
[2018-02-24 06:32] LABS: ADD MANUAL DIFFER YES; DIFF SLIDE NUMBER 36; POSITIVE DIFF POS FLAG; POSITIVE MORPH POS FLAG; WHITE BLOOD COUNT 13.3 10^3/uL (4.0-10.0)
[2018-02-24 06:37] LABS: ANION GAP 8 MEQ/L (8-16); BLOOD UREA NITROGEN 19 MG/DL (7-18); CALCIUM LEVEL 7.5 MG/DL (8.8-10.2); CARBON DIOXIDE LEVEL 26 MEQ/L (21-32); CHLORIDE LEVEL 108 MEQ/L (98-107); CREATININE FOR GFR 1.14 MG/DL (0.55-1.30); GLOMERULAR FILTRATION RATE 48.6 (>32); GLUCOSE, FASTING 229 MG/DL (70-100); POTASSIUM SERUM 3.3 MEQ/L (3.5-5.1); SODIUM LEVEL 142 MEQ/L (136-145)
[2018-02-24] MEDS: POTASSIUM CHLORIDE 10 MEQ SR TABLET PO (07:02)
[2018-02-24 07:03] LABS: EOSINOPHILS 1 % (0-5); LYMPHOCYTES 55 % (16-52); MONOCYTES 1 % (0-8); NEUTROPHILS 43 % (35-75); PLATELET ESTIMATE NORMAL (NORMAL)
[2018-02-24] MEDS: PANTOPRAZOLE 40MG TAB (PROTONIX) PO (08:23)
[2018-02-24] MEDS: ENOXAPARIN 30 MG/0.3 ML SYR (J1650) SC (08:23)
[2018-02-24] MEDS: HumaLOG INSULIN (NovoLOG) PER UNIT SC ×4 (08:23→20:39)
[2018-02-24] MEDS: CHOLESTYRAMINE 4 GM PWD PKT PO ×2 (08:23→20:51)
[2018-02-24] MEDS: FERROUS SULFATE 325MG TAB PO (08:23)
[2018-02-24] MEDS: SYMBICORT 80/4.5MCG INHALER 6GM INH (08:25)
[2018-02-24 11:39] LABS: BEDSIDE GLUCOSE 202 MG/DL (83-110)
[2018-02-24] MEDS: FUROSEMIDE 40 MG TAB PO (13:32)
[2018-02-24] MEDS: LOSARTAN 25 MG TAB PO (13:32)
[2018-02-24 16:20] LABS: BEDSIDE GLUCOSE 283 MG/DL (83-110)
[2018-02-24 20:09] LABS: BEDSIDE GLUCOSE 239 MG/DL (83-110)
[2018-02-24] MEDS: LEVEMIR (INSULIN DETEMIR) 1 UNITS/0.01ML SC (20:50)
[2018-02-24] MEDS: GABAPENTIN 300 MG CAP PO (20:51)
[2018-02-24] MEDS: ATORVASTATIN 20 MG TAB PO (20:51)
[2018-02-24] MEDS: ALLOPURINOL 100 MG TAB PO (20:51)
[2018-02-24] MEDS: FLUTICASONE PROP 0.05% NASAL SPRAY 16 GM (FLONASE) (20:51)
[2018-02-25] MEDS: SYMBICORT 80/4.5MCG INHALER 6GM INH ×2 (00:35→09:19)
[2018-02-25 06:18] LABS: HEMATOCRIT 30.9 % (36.0-47.0); MEAN CORPUSCULAR HGB CONC 32.4 g/dl (32.0-36.5); MEAN CORPUSCULAR VOLUME 83.3 fl (80.0-96.0); PLATELET COUNT, AUTOMATED 149 10^3/uL (150-450); RED BLOOD COUNT 3.71 10^6/uL (4.00-5.40); RED CELL DISTRIBUTION WIDTH 15.7 % (11.5-14.5)
[2018-02-25 06:23] LABS: ADD MANUAL DIFFER YES; DIFF SLIDE NUMBER 17; POSITIVE DIFF POS FLAG; POSITIVE MORPH POS FLAG; WHITE BLOOD COUNT 14.9 10^3/uL (4.0-10.0)
[2018-02-25 06:34] LABS: ANION GAP 6 MEQ/L (8-16); BLOOD UREA NITROGEN 14 MG/DL (7-18); CALCIUM LEVEL 7.8 MG/DL (8.8-10.2); CARBON DIOXIDE LEVEL 28 MEQ/L (21-32); CHLORIDE LEVEL 108 MEQ/L (98-107); CREATININE FOR GFR 0.98 MG/DL (0.55-1.30); GLOMERULAR FILTRATION RATE 57.8 (>32); GLUCOSE, FASTING 125 MG/DL (70-100); POTASSIUM SERUM 3.6 MEQ/L (3.5-5.1); SODIUM LEVEL 142 MEQ/L (136-145)
[2018-02-25 06:44] LABS: EOSINOPHILS 1 % (0-5); LYMPHOCYTES 57 % (16-52); MONOCYTES 2 % (0-8); NEUTROPHILS 40 % (35-75); PLATELET ESTIMATE NORMAL (NORMAL)
[2018-02-25] MEDS: IPRATROPIUM 0.5MG/ALBUTEROL 2.5MG INH SOL UD 3ML (DUONEB)(J7620) NEB ×2 (08:00)
[2018-02-25] MEDS: FUROSEMIDE 40 MG TAB PO (08:25)
[2018-02-25] MEDS: PANTOPRAZOLE 40MG TAB (PROTONIX) PO (08:25)
[2018-02-25] MEDS: CHOLESTYRAMINE 4 GM PWD PKT PO (08:25)
[2018-02-25] MEDS: FERROUS SULFATE 325MG TAB PO (08:25)
[2018-02-25] MEDS: ENOXAPARIN 30 MG/0.3 ML SYR (J1650) SC (08:26)
[2018-02-25] MEDS: POTASSIUM CHLORIDE 10 MEQ SR TABLET PO (08:27)
[2018-02-25] MEDS: HumaLOG INSULIN (NovoLOG) PER UNIT SC (08:27)
[2018-02-25] MEDS: LOSARTAN 25 MG TAB PO (08:28)
== END 2018-02-25 11:16 | disposition home health service (06) | DRG 871 ==
LOC: M ED INP 02-22 00:15 → M MSPAV 02-22 00:54 → M ED 17:29
PROC: 30233N1 Transfusion of Nonautologous Red Blood Cells into Peripheral Vein, Percutaneous Approach (ICD-10-PCS; principal; 2018-02-23)
DX: A41.9 Sepsis, unspecified organism (principal); I50.33 Acute on chronic diastolic (congestive) heart failure; N17.9 Acute kidney failure, unspecified; E86.0 Dehydration; I11.0 Hypertensive heart disease with heart failure; J44.9 Chronic obstructive pulmonary disease, unspecified; E11.9 Type 2 diabetes mellitus without complications; D64.9 Anemia, unspecified; B34.9 Viral infection, unspecified; E78.5 Hyperlipidemia, unspecified; K21.9 Gastro-esophageal reflux disease without esophagitis; G62.9 Polyneuropathy, unspecified; M10.9 Gout, unspecified; Z79.4 Long term (current) use of insulin; Z79.899 Other long term (current) drug therapy; Z88.8 Allergy status to other drugs, medicaments and biological substances; Z98.1 Arthrodesis status; Z90.710 Acquired absence of both cervix and uterus; Z96.652 Presence of left artificial knee joint

== ENCOUNTER → 2018-03-15 | Outpatient (REF) | payer MEDICARE, BC, OTHER ==
[2018-03-15 15:02] LABS: HEMATOCRIT 32.8 % (36.0-47.0); HEMOGLOBIN 10.4 g/dl (12.0-15.5); MEAN CORPUSCULAR HEMOGLOBIN 26.9 pg (27.0-33.0); MEAN CORPUSCULAR HGB CONC 31.7 g/dl (32.0-36.5); MEAN CORPUSCULAR VOLUME 84.8 fl (80.0-96.0); PLATELET COUNT, AUTOMATED 292 10^3/uL (150-450); RED BLOOD COUNT 3.87 10^6/uL (4.00-5.40); RED CELL DISTRIBUTION WIDTH 15.8 % (11.5-14.5); WHITE BLOOD COUNT 17.5 10^3/uL (4.0-10.0)
== END ==
LOC: M LAB REF 14:34
DX: D72.829 Elevated white blood cell count, unspecified (principal)
CPT/HCPCS: 85027

== ENCOUNTER → 2018-03-20 | Outpatient (REF) | payer MEDICARE, OTHER ==
[2018-03-20 18:37] LABS: HEMATOCRIT 31.7 % (36.0-47.0); HEMOGLOBIN 9.8 g/dl (12.0-15.5); MEAN CORPUSCULAR HEMOGLOBIN 26.6 pg (27.0-33.0); MEAN CORPUSCULAR HGB CONC 30.9 g/dl (32.0-36.5); MEAN CORPUSCULAR VOLUME 86.1 fl (80.0-96.0); PLATELET COUNT, AUTOMATED 215 10^3/uL (150-450); RED BLOOD COUNT 3.68 10^6/uL (4.00-5.40); RED CELL DISTRIBUTION WIDTH 16.6 % (11.5-14.5)
[2018-03-20 18:42] LABS: ADD MANUAL DIFFER YES; DIFF SLIDE NUMBER 291; POSITIVE DIFF POS FLAG; POSITIVE MORPH POS FLAG; WHITE BLOOD COUNT 17.8 10^3/uL (4.0-10.0)
[2018-03-20 20:58] LABS: ATYPICAL LYMPH 5 % (0-5); BASOPHILS 1 % (0-4); EOSINOPHILS 1 % (0-5); LYMPHOCYTES 45 % (16-52); MONOCYTES 3 % (0-8); NEUTROPHILS 45 % (35-75)
[2018-03-20 20:59] LABS: PLATELET ESTIMATE NORMAL (NORMAL)
== END ==
LOC: M LAB REF 17:23
DX: D64.9 Anemia, unspecified (principal)
CPT/HCPCS: 85025

== ENCOUNTER → 2018-05-11 | Outpatient (REF) | payer MEDICARE, OTHER | LOC: M LAB REF 12:59 | DX: R19.7 Diarrhea, unspecified (principal) | CPT/HCPCS: 87507 ==

== ENCOUNTER 2018-05-14 19:00 | Inpatient (IN) | payer MEDICARE, OTHER ==
[2018-05-14] MEDS: ACETAMINOPHEN 325 MG TAB PO (20:03)
[2018-05-14] MEDS: NS 500 ML IV (20:03)
[2018-05-14 20:17] LABS: HEMATOCRIT 28.1 % (36.0-47.0); HEMOGLOBIN 8.8 g/dl (12.0-15.5); MEAN CORPUSCULAR HEMOGLOBIN 28.9 pg (27.0-33.0); MEAN CORPUSCULAR HGB CONC 31.3 g/dl (32.0-36.5); MEAN CORPUSCULAR VOLUME 92.4 fl (80.0-96.0); PLATELET COUNT, AUTOMATED 147 10^3/uL (150-450); RED BLOOD COUNT 3.04 10^6/uL (4.00-5.40); RED CELL DISTRIBUTION WIDTH 19.5 % (11.5-14.5)
[2018-05-14 20:19] LABS: ANION GAP 8 MEQ/L (8-16); BLOOD UREA NITROGEN 26 MG/DL (7-18); CALCIUM LEVEL 7.7 MG/DL (8.8-10.2); CARBON DIOXIDE LEVEL 23 MEQ/L (21-32); CHLORIDE LEVEL 111 MEQ/L (98-107); CREATININE FOR GFR 1.32 MG/DL (0.55-1.30); GLOMERULAR FILTRATION RATE 40.9 (>32); GLUCOSE, FASTING 132 MG/DL (70-100); POTASSIUM SERUM 4.5 MEQ/L (3.5-5.1); SODIUM LEVEL 142 MEQ/L (136-145)
[2018-05-14 20:22] LABS: LACTIC ACID SEPSIS PROTOCOL 0.9 MMOL/L (0.4-2.0)
[2018-05-14 20:42] LABS: ADD MANUAL DIFFER YES; DIFF SLIDE NUMBER 358; POSITIVE DIFF POS FLAG; POSITIVE MORPH POS FLAG; WHITE BLOOD COUNT 16.3 10^3/uL (4.0-10.0)
[2018-05-14 21:12] LABS: APPEARANCE, URINE HAZY (CLEAR); BACTERIA, URINE AUTO 1+ (NEGATIVE); BILIRUBIN, URINE AUTO NEGATIVE (NEGATIVE); BLOOD, URINE BLOOD NEGATIVE (NEGATIVE); COLOR, URINE YELLOW (YELLOW); GLUCOSE, URINE (UA) AUTO NEGATIVE (NEGATIVE); KETONE, URINE AUTO NEGATIVE (NEGATIVE); LEUKOCYTE ESTERASE, URINE AUTO 2+ (NEGATIVE); MUCUS, URINE SMALL (NEGATIVE); NITRITE, URINE AUTO NEGATIVE (NEGATIVE); PROTEIN, URINE AUTO NEGATIVE (NEGATIVE); RBC, URINE AUTO 8 /HPF (0-3); SPECIFIC GRAVITY URINE AUTO 1.019 (1.002-1.035); SQUAMOUS EPITHELIAL CELL UR AU 0 /HPF (0-6); UROBILINOGEN, URINE AUTO 0.2 mg/dL (0.0-2.0); WBC, URINE AUTO 38 /HPF (0-3)
[2018-05-14 21:17] LABS: ATYPICAL LYMPH 13 % (0-5); BASOPHILS 1 % (0-4); LYMPHOCYTES 34 % (16-52); MONOCYTES 10 % (0-8); NEUTROPHILS 42 % (35-75); PLATELET ESTIMATE NORMAL (NORMAL)
[2018-05-14 21:18] LABS: ANISOCYTOSIS 3+
[2018-05-14] MEDS: PIPERACILLIN/TAZOBACTAM SOD 3.375 GM in D5W MINI-BAG PLUS 50 ML IV (21:30)
[2018-05-14] MEDS: metroNIDAZOLE 500 MG in APPROPRIATE DILUENT 1 EA IV (21:54)
[2018-05-14] MEDS ORDERED: ISOVUE-370 76% 100ML VIAL (Q9967) As Ordered (21:57)
[2018-05-15] MEDS: NS 1,000 ML IV ×2 (01:31→12:16)
[2018-05-15] MEDS ORDERED: ONDANSETRON 4MG/2ML VIAL (J2405) IV (01:45)
[2018-05-15 05:22] LABS: BEDSIDE GLUCOSE 104 MG/DL (83-110)
[2018-05-15] MEDS: metroNIDAZOLE 500 MG in APPROPRIATE DILUENT 1 EA IV (05:26)
[2018-05-15] MEDS: ACETAMINOPHEN TAB 650MG DOSE (2X325MG) PO (05:27)
[2018-05-15 06:23] LABS: HEMATOCRIT 25.8 % (36.0-47.0); HEMOGLOBIN 7.9 g/dl (12.0-15.5); MEAN CORPUSCULAR HEMOGLOBIN 28.7 pg (27.0-33.0); MEAN CORPUSCULAR HGB CONC 30.6 g/dl (32.0-36.5); MEAN CORPUSCULAR VOLUME 93.8 fl (80.0-96.0); PLATELET COUNT, AUTOMATED 120 10^3/uL (150-450); RED BLOOD COUNT 2.75 10^6/uL (4.00-5.40); RED CELL DISTRIBUTION WIDTH 19.2 % (11.5-14.5)
[2018-05-15 06:27] LABS: POSITIVE DIFF POS FLAG; POSITIVE MORPH POS FLAG
[2018-05-15 06:28] LABS: ADD MANUAL DIFFER YES; DIFF SLIDE NUMBER 100
[2018-05-15 06:46] LABS: ALBUMIN 2.4 GM/DL (3.2-5.2); ALBUMIN/GLOBULIN RATIO 0.65 (1.00-1.93); ALKALINE PHOSPHATASE 82 U/L (45-117); ALT/SGPT 9 U/L (12-78); ANION GAP 8 MEQ/L (8-16); AST/SGOT 12 U/L (7-37); BILIRUBIN,TOTAL 0.9 MG/DL (0.2-1.0); BLOOD UREA NITROGEN 26 MG/DL (7-18); CALCIUM LEVEL 7.8 MG/DL (8.8-10.2); CARBON DIOXIDE LEVEL 22 MEQ/L (21-32); CHLORIDE LEVEL 113 MEQ/L (98-107); CREATININE FOR GFR 1.28 MG/DL (0.55-1.30); GLOMERULAR FILTRATION RATE 42.4 (>32); GLUCOSE, FASTING 100 MG/DL (70-100); MAGNESIUM LEVEL 1.3 MG/DL (1.8-2.4); POTASSIUM SERUM 4.3 MEQ/L (3.5-5.1); SODIUM LEVEL 143 MEQ/L (136-145); TOTAL PROTEIN 6.1 GM/DL (6.4-8.2)
[2018-05-15 06:59] LABS: ATYPICAL LYMPH 15 % (0-5); LYMPHOCYTES 52 % (16-52); MONOCYTES 4 % (0-8); NEUTROPHILS 29 % (35-75)
[2018-05-15 07:00] LABS: ANISOCYTOSIS 2+; PLATELET ESTIMATE DECREASED (NORMAL)
[2018-05-15] MEDS: HumaLOG INSULIN (NovoLOG) PER UNIT SC ×4 (07:30→21:00)
[2018-05-15] MEDS ORDERED: ALBUTEROL 90 MCG/ACT 8GM HFA INHALER INH (07:45)
[2018-05-15] MEDS ORDERED: DEXTROSE 50% 50 ML SYRINGE IV (08:15)
[2018-05-15] MEDS ORDERED: GLUCAGON FOR INJ 1 MG VIAL (J1610) SC (08:15)
[2018-05-15] MEDS ORDERED: GLUCOSE 4 GM CHEW TABLET PO (08:15)
[2018-05-15] MEDS ORDERED: VANCOMYCIN ORAL SOL 250MG/5ML ORAL SYRINGE PO (09:00)
[2018-05-15] MEDS ORDERED: LEVEMIR (INSULIN DETEMIR) 1 UNITS/0.01ML SC (09:00)
[2018-05-15] MEDS: MAG SULF 1GM/100ML (MAG RUN) 1 GM in APPROPRIATE DILUENT 1 EA IV (09:58)
[2018-05-15] MEDS: FERROUS SULFATE 325MG TAB PO ×2 (09:59→22:07)
[2018-05-15] MEDS: MULTIVITAMINS/MINERALS THERAP 1 TAB PO (09:59)
[2018-05-15] MEDS: CARVedilol 3.125 MG TAB PO ×2 (10:01→22:07)
[2018-05-15] MEDS: VANCOMYCIN ORAL SOL 250MG/5ML ORAL SYRINGE PO (10:02)
[2018-05-15] MEDS: PANTOPRAZOLE 40MG TAB (PROTONIX) PO (10:03)
[2018-05-15] MEDS: LEVEMIR (INSULIN DETEMIR) 1 UNITS/0.01ML SC (10:03)
[2018-05-15] MEDS: SYMBICORT 80/4.5MCG INHALER 6GM INH ×2 (10:37→21:09)
[2018-05-15 12:10] LABS: BEDSIDE GLUCOSE 138 MG/DL (83-110)
[2018-05-15] MEDS: LACTOBACILLUS ACIDOPHILUS CAP (BACID) PO ×3 (12:16→22:06)
[2018-05-15] MEDS: FIDAXOMICIN 200 MG TAB (DIFICID) PO ×2 (12:29→22:06)
[2018-05-15 12:55] LABS: IMMEDIATE SPIN CROSSMATCH 1 1
[2018-05-15] MEDS: CHOLESTYRAMINE 4 GM PWD PKT PO ×2 (15:41→22:05)
[2018-05-15] MEDS: FUROSEMIDE 20 MG/2 ML VIAL (J1940) IV (16:17)
[2018-05-15 17:51] LABS: BEDSIDE GLUCOSE 116 MG/DL (83-110)
[2018-05-15 17:52] LABS: HEMATOCRIT 30.9 % (36.0-47.0); HEMOGLOBIN 10.2 g/dl (12.0-15.5)
[2018-05-15 18:42] LABS: POS COUNT POS FLAG
[2018-05-15 20:37] LABS: BEDSIDE GLUCOSE 111 MG/DL (83-110)
[2018-05-15] MEDS: ATORVASTATIN 20 MG TAB PO (22:06)
[2018-05-15] MEDS: HEPARIN SOD (PORCINE) 5000 UNITS/ML VIAL SQ (22:06)
[2018-05-15] MEDS: GABAPENTIN 300 MG CAP PO (22:07)
[2018-05-15] MEDS: ALLOPURINOL 100 MG TAB PO (22:07)
[2018-05-15] MEDS: FLUTICASONE PROP 0.05% NASAL SPRAY 16 GM (FLONASE) (22:08)
[2018-05-15] MEDS: NYSTATIN 100,000 UNITS/GM TOPICAL PWD 15 GM TOP (22:08)
[2018-05-16] MEDS: NS 1,000 ML IV (04:30)
[2018-05-16 05:36] LABS: BEDSIDE GLUCOSE 115 MG/DL (83-110)
[2018-05-16 06:36] LABS: HEMOGLOBIN 8.6 g/dl (12.0-15.5); MEAN CORPUSCULAR HEMOGLOBIN 29.1 pg (27.0-33.0); MEAN CORPUSCULAR HGB CONC 31.9 g/dl (32.0-36.5); MEAN CORPUSCULAR VOLUME 91.2 fl (80.0-96.0); PLATELET COUNT, AUTOMATED 128 10^3/uL (150-450); RED BLOOD COUNT 2.96 10^6/uL (4.00-5.40); RED CELL DISTRIBUTION WIDTH 18.4 % (11.5-14.5)
[2018-05-16 06:55] LABS: WHITE BLOOD COUNT 12.2 10^3/uL (4.0-10.0)
[2018-05-16 06:56] LABS: ADD MANUAL DIFFER YES; DIFF SLIDE NUMBER 5; POSITIVE DIFF POS FLAG; POSITIVE MORPH POS FLAG
[2018-05-16 07:02] LABS: ALBUMIN 2.2 GM/DL (3.2-5.2); ALBUMIN/GLOBULIN RATIO 0.58 (1.00-1.93); ALKALINE PHOSPHATASE 75 U/L (45-117); ALT/SGPT 8 U/L (12-78); ANION GAP 9 MEQ/L (8-16); AST/SGOT 10 U/L (7-37); BILIRUBIN,TOTAL 0.9 MG/DL (0.2-1.0); BLOOD UREA NITROGEN 21 MG/DL (7-18); CALCIUM LEVEL 7.8 MG/DL (8.8-10.2); CARBON DIOXIDE LEVEL 21 MEQ/L (21-32); CHLORIDE LEVEL 111 MEQ/L (98-107); CREATININE FOR GFR 1.05 MG/DL (0.55-1.30); GLOMERULAR FILTRATION RATE 53.3 (>32); GLUCOSE, FASTING 112 MG/DL (70-100); MAGNESIUM LEVEL 1.4 MG/DL (1.8-2.4); POTASSIUM SERUM 3.6 MEQ/L (3.5-5.1); SODIUM LEVEL 141 MEQ/L (136-145)
[2018-05-16 07:07] LABS: ANISOCYTOSIS 2+; ATYPICAL LYMPH 11 % (0-5); EOSINOPHILS 1 % (0-5); LYMPHOCYTES 55 % (16-52); MONOCYTES 7 % (0-8); NEUTROPHILS 26 % (35-75); PLATELET ESTIMATE DECREASED (NORMAL); SMUDGE CELLS 1+
[2018-05-16] MEDS: MAG SULF 1GM/100ML (MAG RUN) 1 GM in APPROPRIATE DILUENT 1 EA IV ×2 (07:55→10:02)
[2018-05-16] MEDS: HEPARIN SOD (PORCINE) 5000 UNITS/ML VIAL SQ ×2 (07:56→22:18)
[2018-05-16] MEDS: FERROUS SULFATE 325MG TAB PO ×2 (07:57→22:15)
[2018-05-16] MEDS: POTASSIUM CHLORIDE 10 MEQ SR TABLET PO (07:57)
[2018-05-16] MEDS: HumaLOG INSULIN (NovoLOG) PER UNIT SC ×4 (07:57→21:00)
[2018-05-16] MEDS: LEVEMIR (INSULIN DETEMIR) 1 UNITS/0.01ML SC (07:58)
[2018-05-16] MEDS: MULTIVITAMINS/MINERALS THERAP 1 TAB PO (07:59)
[2018-05-16] MEDS: LACTOBACILLUS ACIDOPHILUS CAP (BACID) PO ×3 (07:59→22:15)
[2018-05-16] MEDS: FIDAXOMICIN 200 MG TAB (DIFICID) PO ×2 (07:59→22:15)
[2018-05-16] MEDS: PANTOPRAZOLE 40MG TAB (PROTONIX) PO (07:59)
[2018-05-16] MEDS: CARVedilol 3.125 MG TAB PO ×2 (08:10→22:16)
[2018-05-16] MEDS ORDERED: PILL CRUSHER/CUTTER 1 EACH XX (08:15)
[2018-05-16] MEDS: COLCHICINE 0.6 MG TAB PO (10:02)
[2018-05-16 11:38] LABS: BEDSIDE GLUCOSE 220 MG/DL (83-110)
[2018-05-16] MEDS: CHOLESTYRAMINE 4 GM PWD PKT PO ×2 (12:17→22:16)
[2018-05-16] MEDS: SYMBICORT 80/4.5MCG INHALER 6GM INH ×2 (13:41→21:00)
[2018-05-16 14:12] LABS: HEMATOCRIT 29.4 % (36.0-47.0); HEMOGLOBIN 9.2 g/dl (12.0-15.5)
[2018-05-16 17:59] LABS: BEDSIDE GLUCOSE 153 MG/DL (83-110)
[2018-05-16 20:31] LABS: BEDSIDE GLUCOSE 187 MG/DL (83-110)
[2018-05-16] MEDS: ATORVASTATIN 20 MG TAB PO (22:16)
[2018-05-16] MEDS: ALLOPURINOL 100 MG TAB PO (22:16)
[2018-05-16] MEDS: GABAPENTIN 300 MG CAP PO (22:16)
[2018-05-16] MEDS: NYSTATIN 100,000 UNITS/GM TOPICAL PWD 15 GM TOP ×2 (22:17→22:30)
[2018-05-16] MEDS: FLUTICASONE PROP 0.05% NASAL SPRAY 16 GM (FLONASE) (22:17)
[2018-05-16] MEDS: CYCLOBENZAPRINE 10 MG TAB PO (22:29)
[2018-05-16] MEDS: ACETAMINOPHEN TAB 650MG DOSE (2X325MG) PO (22:30)
[2018-05-17 08:10] LABS: BEDSIDE GLUCOSE 127 MG/DL (83-110)
[2018-05-17] MEDS: HumaLOG INSULIN (NovoLOG) PER UNIT SC ×4 (08:12→21:00)
[2018-05-17] MEDS: SYMBICORT 80/4.5MCG INHALER 6GM INH ×2 (08:24→21:00)
[2018-05-17 08:50] LABS: HEMATOCRIT 30.3 % (36.0-47.0); HEMOGLOBIN 9.6 g/dl (12.0-15.5); MEAN CORPUSCULAR HEMOGLOBIN 29.1 pg (27.0-33.0); MEAN CORPUSCULAR HGB CONC 31.7 g/dl (32.0-36.5); MEAN CORPUSCULAR VOLUME 91.8 fl (80.0-96.0); PLATELET COUNT, AUTOMATED 141 10^3/uL (150-450); RED CELL DISTRIBUTION WIDTH 17.8 % (11.5-14.5)
[2018-05-17 08:53] LABS: ADD MANUAL DIFFER YES; DIFF SLIDE NUMBER 1; POSITIVE DIFF POS FLAG; POSITIVE MORPH POS FLAG; WHITE BLOOD COUNT 12.2 10^3/uL (4.0-10.0)
[2018-05-17] MEDS: HEPARIN SOD (PORCINE) 5000 UNITS/ML VIAL SQ ×2 (09:06→21:00)
[2018-05-17] MEDS: CARVedilol 3.125 MG TAB PO ×2 (09:07→20:59)
[2018-05-17] MEDS: MULTIVITAMINS/MINERALS THERAP 1 TAB PO (09:07)
[2018-05-17] MEDS: COLCHICINE 0.6 MG TAB PO (09:07)
[2018-05-17] MEDS: FIDAXOMICIN 200 MG TAB (DIFICID) PO ×2 (09:07→20:58)
[2018-05-17] MEDS: CHOLESTYRAMINE 4 GM PWD PKT PO ×2 (09:08→20:59)
[2018-05-17] MEDS: FERROUS SULFATE 325MG TAB PO ×2 (09:08→20:58)
[2018-05-17] MEDS: PANTOPRAZOLE 40MG TAB (PROTONIX) PO (09:08)
[2018-05-17] MEDS: LACTOBACILLUS ACIDOPHILUS CAP (BACID) PO ×3 (09:08→20:58)
[2018-05-17] MEDS: LEVEMIR (INSULIN DETEMIR) 1 UNITS/0.01ML SC (09:11)
[2018-05-17 09:16] LABS: ALBUMIN 2.6 GM/DL (3.2-5.2); ALBUMIN/GLOBULIN RATIO 0.58 (1.00-1.93); ALKALINE PHOSPHATASE 97 U/L (45-117); ALT/SGPT 10 U/L (12-78); ANION GAP 11 MEQ/L (8-16); AST/SGOT 11 U/L (7-37); BILIRUBIN,TOTAL 0.7 MG/DL (0.2-1.0); BLOOD UREA NITROGEN 16 MG/DL (7-18); CALCIUM LEVEL 8.6 MG/DL (8.8-10.2); CARBON DIOXIDE LEVEL 21 MEQ/L (21-32); CHLORIDE LEVEL 111 MEQ/L (98-107); GLOMERULAR FILTRATION RATE 56.4 (>32); GLUCOSE, FASTING 154 MG/DL (70-100); MAGNESIUM LEVEL 1.7 MG/DL (1.8-2.4); POTASSIUM SERUM 3.9 MEQ/L (3.5-5.1); SODIUM LEVEL 143 MEQ/L (136-145); TOTAL PROTEIN 7.1 GM/DL (6.4-8.2)
[2018-05-17 09:47] LABS: ANISOCYTOSIS 1+; ATYPICAL LYMPH 2 % (0-5); BANDS 2 % (< 11); LYMPHOCYTES 49 % (16-52); MONOCYTES 3 % (0-8); NEUTROPHILS 44 % (35-75); PLATELET ESTIMATE DECREASED (NORMAL)
[2018-05-17 09:48] LABS: MICROCYTOSIS 1+
[2018-05-17] MEDS: MAG SULF 1GM/100ML (MAG RUN) 1 GM in APPROPRIATE DILUENT 1 EA IV (12:32)
[2018-05-17 12:51] LABS: BEDSIDE GLUCOSE 198 MG/DL (83-110)
[2018-05-17 16:40] LABS: BEDSIDE GLUCOSE 209 MG/DL (83-110)
[2018-05-17] MEDS: SPIRONOLACTONE 25 MG TAB PO (18:52)
[2018-05-17] MEDS: FLUTICASONE PROP 0.05% NASAL SPRAY 16 GM (FLONASE) (20:57)
[2018-05-17] MEDS: GABAPENTIN 300 MG CAP PO (20:58)
[2018-05-17] MEDS: ALLOPURINOL 100 MG TAB PO (20:58)
[2018-05-17] MEDS: ATORVASTATIN 20 MG TAB PO (20:58)
[2018-05-17 21:06] LABS: BEDSIDE GLUCOSE 238 MG/DL (83-110)
[2018-05-17] MEDS: ACETAMINOPHEN TAB 650MG DOSE (2X325MG) PO (23:13)
[2018-05-18 07:26] LABS: HEMATOCRIT 28.2 % (36.0-47.0); HEMOGLOBIN 8.8 g/dl (12.0-15.5); MEAN CORPUSCULAR HEMOGLOBIN 28.8 pg (27.0-33.0); MEAN CORPUSCULAR HGB CONC 31.2 g/dl (32.0-36.5); MEAN CORPUSCULAR VOLUME 92.2 fl (80.0-96.0); PLATELET COUNT, AUTOMATED 146 10^3/uL (150-450); RED BLOOD COUNT 3.06 10^6/uL (4.00-5.40); RED CELL DISTRIBUTION WIDTH 17.6 % (11.5-14.5)
[2018-05-18 07:35] LABS: POSITIVE DIFF POS FLAG; WHITE BLOOD COUNT 13.7 10^3/uL (4.0-10.0)
[2018-05-18 07:36] LABS: ADD MANUAL DIFFER YES; DIFF SLIDE NUMBER 1; POSITIVE MORPH POS FLAG
[2018-05-18 07:39] LABS: ALBUMIN 2.3 GM/DL (3.2-5.2); ALBUMIN/GLOBULIN RATIO 0.55 (1.00-1.93); ALKALINE PHOSPHATASE 103 U/L (45-117); ALT/SGPT 9 U/L (12-78); ANION GAP 7 MEQ/L (8-16); AST/SGOT 11 U/L (7-37); BILIRUBIN,TOTAL 0.4 MG/DL (0.2-1.0); BLOOD UREA NITROGEN 13 MG/DL (7-18); CALCIUM LEVEL 8.1 MG/DL (8.8-10.2); CARBON DIOXIDE LEVEL 24 MEQ/L (21-32); CHLORIDE LEVEL 112 MEQ/L (98-107); GLOMERULAR FILTRATION RATE > 60.0 (>32); GLUCOSE, FASTING 138 MG/DL (70-100); MAGNESIUM LEVEL 1.7 MG/DL (1.8-2.4); POTASSIUM SERUM 3.8 MEQ/L (3.5-5.1); SODIUM LEVEL 143 MEQ/L (136-145); TOTAL PROTEIN 6.5 GM/DL (6.4-8.2)
[2018-05-18] MEDS: SYMBICORT 80/4.5MCG INHALER 6GM INH (07:49)
[2018-05-18 08:26] LABS: ATYPICAL LYMPH 3 % (0-5); LYMPHOCYTES 53 % (16-52); MONOCYTES 3 % (0-8); NEUTROPHILS 41 % (35-75)
[2018-05-18 08:27] LABS: ANISOCYTOSIS 1+; PLATELET ESTIMATE DECREASED (NORMAL)
[2018-05-18] MEDS: HumaLOG INSULIN (NovoLOG) PER UNIT SC ×2 (08:32→12:44)
[2018-05-18] MEDS: MULTIVITAMINS/MINERALS THERAP 1 TAB PO (08:33)
[2018-05-18] MEDS: FIDAXOMICIN 200 MG TAB (DIFICID) PO ×2 (08:33→14:08)
[2018-05-18] MEDS: LACTOBACILLUS ACIDOPHILUS CAP (BACID) PO ×2 (08:33→16:51)
[2018-05-18] MEDS: COLCHICINE 0.6 MG TAB PO (08:33)
[2018-05-18] MEDS: PANTOPRAZOLE 40MG TAB (PROTONIX) PO (08:33)
[2018-05-18] MEDS: CHOLESTYRAMINE 4 GM PWD PKT PO (08:33)
[2018-05-18] MEDS: LEVEMIR (INSULIN DETEMIR) 1 UNITS/0.01ML SC (08:34)
[2018-05-18] MEDS: HEPARIN SOD (PORCINE) 5000 UNITS/ML VIAL SQ (08:34)
[2018-05-18] MEDS: FUROSEMIDE 20 MG TAB PO (08:34)
[2018-05-18] MEDS: FERROUS SULFATE 325MG TAB PO (08:35)
[2018-05-18] MEDS: CARVedilol 3.125 MG TAB PO (08:37)
[2018-05-18 12:48] LABS: BEDSIDE GLUCOSE 211 MG/DL (83-110)
[2018-05-18] MEDS: SPIRONOLACTONE 25 MG TAB PO (16:51)
[2018-05-19] MEDS ORDERED: LEVEMIR (INSULIN DETEMIR) 1 UNITS/0.01ML SC (09:00)
== END 2018-05-18 17:20 | disposition home or self-care (01) | DRG 372 ==
LOC: M ED INP 05-15 01:31 → M MS5PR 05-15 02:10 → M ED 19:00
PROC: 30233N1 Transfusion of Nonautologous Red Blood Cells into Peripheral Vein, Percutaneous Approach (ICD-10-PCS; principal; 2018-05-15)
DX: A04.72 Enterocolitis due to Clostridium difficile, not specified as recurrent (principal); I50.32 Chronic diastolic (congestive) heart failure; E86.0 Dehydration; J30.1 Allergic rhinitis due to pollen; J30.81 Allergic rhinitis due to animal (cat) (dog) hair and dander; I11.0 Hypertensive heart disease with heart failure; J44.9 Chronic obstructive pulmonary disease, unspecified; E11.42 Type 2 diabetes mellitus with diabetic polyneuropathy; M54.9 Dorsalgia, unspecified; D63.8 Anemia in other chronic diseases classified elsewhere; M10.9 Gout, unspecified; K21.9 Gastro-esophageal reflux disease without esophagitis; Z88.2 Allergy status to sulfonamides; Z85.828 Personal history of other malignant neoplasm of skin; Z96.652 Presence of left artificial knee joint; Z79.4 Long term (current) use of insulin; Z79.899 Other long term (current) drug therapy

== ENCOUNTER → 2018-05-31 | Outpatient (REF) | payer MEDICARE, OTHER, BC | LOC: M LAB REF 13:31 | DX: R19.7 Diarrhea, unspecified (principal) | CPT/HCPCS: 87507 ==

== ENCOUNTER → 2019-05-16 | Outpatient (REF) | payer MEDICARE, OTHER ==
[~2019-05-16] MED LIST changes: -/PANT40TA OR; +ALLO100T PO; +ALLO10TA PO; +ASCO10003 PO; +ATOR1TAB21 PO; +CARV3.12 PO; +CHOL4POW4 PO; +CHOLPOW PO; +CYCL10TA PO; +CYCL5TAB PO; +DIFI200T PO; +FERR325T3 PO; +FURO20TA2 PO; -FURO40TA2 OR; +FURO40TA2 PO; +GABA-843 PO; +HYDR-3911 PO; +HYDR50TA PO; +IMOD2TAB16 PO; +KLOR20TA42 PO; +LANTINJ4 SC; +LEVA1TAB2 PO; +LEVA250T13 PO; +LEVOPOW56 XX; +LOSA50TA5 PO; +LOSA50TA88 PO; +MAG400TA PO; +MOME50SP; +MULT1TAB10 PO; +NYST1POW9 TOP; +PANT40TA3 PO; +PRED10TA2 PO; +PROAAER10 INH; +PROT1TAB2 OR; +REFR1DRO8 OU; +RISATAB3 PO; +SPIR-10 PO; +SYMB80INH INH; +VANC125C3 PO; +VITA-182 PO; +VITA20008 PO; +VITA500T PO; +VITMTA PO; +XYZA5TAB2 PO; +XYZA5TAB4 PO
== END ==
LOC: M LAB REF 14:58
PROVIDERS: ATTEND Internal Medicine
DX: A04.71 Enterocolitis due to Clostridium difficile, recurrent (principal)